=== PATIENT | female | born 1975 | race Caucasian/White ===

== ENCOUNTER 2024-07-17 22:30 | Emergency (ER) | payer OTHER, SELFPAY ==
[2024-07-17 22:32] VITALS: BP 154/94; PULSE 93; RESP 18; TEMP 36.8; O2SAT 100; BMI 29.9
--- NOTE | 2024-07-17 22:48 | XR_ITS ---
PROCEDURE INFORMATION: Exam: XR Right Shoulder Exam date and time: 07/17/2024 10:49 PM Age: 49 years old Clinical indication: Pain; Shoulder; Right; Additional info: Non traumatic right shoulder pain TECHNIQUE: Imaging protocol: Radiologic exam of the right shoulder. Views: 2 or more views. COMPARISON: No relevant prior studies available. FINDINGS: Bones/joints: Normal. Soft tissues: Normal. IMPRESSION: No acute findings.
--- NOTE | 2024-07-17 22:53 | HMH.EDGENADL ---
Discharge Plan Disposition Patient Disposition: Home, Self-Care Prescriptions Prescriptions: New cyclobenzaprine 5 mg tablet 5 mg PO TID PRN (Reason: muscle spasm) 5 Days Qty: 15 0RF Referrals Follow up/Referrals: Husam Amin DO [Staff Physician] - See instructions Activity Restrictions/Add. Instructions Additional Instructions/Restrictions: Please follow-up with your primary care provider. Please return to the emergency department if you develop any new or worsening symptoms or become concerned for your health. Clinical Impressions Clinical Impression: Pain in right shoulder Print Language Print Language: Swedish Discharge ED Provider: Eliezer oFy General Adult HPI <Komal Camara MD - Last Filed: 07/17/24 22:56> General Chief complaint: PAIN Stated complaint: Right shoulder pain Time Seen by Provider: 07/17/24 22:40 Mode of Arrival: Ambulatory Source of Information: Patient Limitations: No Limitations Description of Symptoms (Recalled from ER Triage Doc. by RN): pt reports right shoulder pain without known injury. pt reports pain is ongoing for a couple weeks and the pain becam worse in the last couple of days History of Present Illness HPI narrative: Patient is a 49-year-old female with a history of fibromyalgia who presents today with nontraumatic right shoulder pain. She denies any swelling any redness any neurovascular symptoms in the right upper extremity she states its only worse with movement. She denies any history of any blood clots any shortness of breath etc. Related Data Previous Rx's ?Medication ?Instructions ?Recorded cyclobenzaprine 5 mg tablet 5 mg PO TID PRN muscle spasm 5 07/17/24 days #15 tabs Allergies Allergy/AdvReac Type Severity Reaction Status Date / Time aspirin Allergy Unknown Verified 07/17/24 22:49 allergy reaction cephalexin [From Keflex] Allergy Unknown Verified 07/17/24 22:49 allergy reaction ciprofloxacin [From Cipro] Allergy Unknown Verified 07/17/24 22:49 allergy reaction morphine Allergy Unknown Verified 07/17/24 22:49 allergy reaction NSAIDS (Non-Steroidal Allergy Unknown Verified 07/17/24 22:49 Anti-Inflamma allergy reaction ondansetron [From Zofran] Allergy Unknown Verified 07/17/24 22:49 allergy reaction Sulfa (Sulfonamide AdvReac Unknown Verified 07/17/24 22:49 Antibiotics) allergy reaction PFSH <Komal Camara MD - Last Filed: 07/17/24 22:56> [facility] Disclaimer: The information contained in this section may have been updated after the patient was seen, as this information can be updated by other users. Social History (Updated 07/17/24 @ 22:56 by Komal Camara MD) Smoking Status: Never smoker alcohol intake: never current occupational status: other Travel in the last 8 weeks: None <Komal Camara MD - Last Filed: 07/17/24 22:56> ROS Obtained: Yes All systems reviewed & no additional complaints except as documented Physical Exam <Komal Camara MD - Last Filed: 07/17/24 22:56> General General appearance: alert and in no apparent distress Respiratory Respiratory exam: Present normal lung sounds bilaterally Cardiovascular Cardiovascular exam: Present regular rate and normal rhythm Extremities Exam Extremities exam: Present other (Right shoulder without any swelling within the joint itself there is tenderness in the anterior joint line normal range of motion with internal and external rotation flexion and extension neurovascular intact distally) Neurological Exam Neurological exam: Present alert and oriented X3 Medical Decision Making <Komal Camara MD - Last Filed: 07/17/24 22:56> Medical Records Screening: Per USPSTF and CDC recommendations, given the prevalence of disease in our region, it is our hospital?s policy to screen for HIV and viral Hepatitis for all patients aged 18 and over and those with ongoing risk factors. Domo Inquiry Pt receiving controlled substance: No Vital Signs: 07/17/24 22:32 Temperature 98.2 F Temperature Source Oral Pulse Rate [Right] 93 H Respiratory Rate 18 Blood Pressure [Right Arm] 154/94 H Blood Pressure Mean [Right Arm] 114 02 Sat by Pulse Oximetry 100 Orders (Tests/Meds): ED MEDICATIONS Discontinued Medications Generic Name Dose Route Start Last Admin Trade Name Freq PRN Reason Stop Dose Admin Acetaminophen 1,000 mg 07/18/24 00:10 07/18/24 00:18 Acetaminophen 500mg Tab PO 07/18/24 00:11 1,000 mg ONCE ONE Administration Cyclobenzaprine HCl 5 mg 07/17/24 22:48 07/17/24 23:06 Cyclobenzaprine 10mg Tablet PO 07/17/24 22:49 5 mg ONCE ONE Administration Ketorolac Tromethamine 30 mg 07/17/24 22:48 07/17/24 23:06 Ketorolac 30mg/Ml Vial IM 07/17/24 22:49 30 mg ONCE ONE Administration ORDERS Category Date Time Status Shoulder XR right miminum 2 views [XR shoulder RT min Exams 07/17/24 22:48 Completed 2V] Stat Medical Decision Narrative: 49-year-old with nontraumatic shoulder pain with very benign appearing exam. Exam is essentially normal from an objective standpoint. No evidence of infection, latency, swelling neurovascular abnormalities not consistent with an emergent medical condition such as a septic joint neurovascular emergency etc. Not consistent with a clot. Will get a x-ray to rule out any type of occult malignancy or fracture or degenerative changes. She has been given Toradol and Flexeril and will have her follow-up with her primary care doctor and also give her referral to orthopedic surgery if she is not improving within a few weeks. Care transition to Dr. Stacy Foy pending reassessment after medications and x-ray. <Eliezer Foy MD - Last Filed: 07/18/24 00:21> Vital Signs: 07/17/24 22:32 Temperature 98.2 F Temperature Source Oral Pulse Rate [Right] 93 H Respiratory Rate 18 Blood Pressure [Right Arm] 154/94 H Blood Pressure Mean [Right Arm] 114 02 Sat by Pulse Oximetry 100 Orders (Tests/Meds): ED MEDICATIONS Discontinued Medications Generic Name Dose Route Start Last Admin Trade Name Freq PRN Reason Stop Dose Admin Acetaminophen 1,000 mg 07/18/24 00:10 07/18/24 00:18 Acetaminophen 500mg Tab PO 07/18/24 00:11 1,000 mg ONCE ONE Administration Cyclobenzaprine HCl 5 mg 07/17/24 22:48 07/17/24 23:06 Cyclobenzaprine 10mg Tablet PO 07/17/24 22:49 5 mg ONCE ONE Administration Ketorolac Tromethamine 30 mg 07/17/24 22:48 07/17/24 23:06 Ketorolac 30mg/Ml Vial IM 07/17/24 22:49 30 mg ONCE ONE Administration ORDERS Category Date Time Status Shoulder XR right miminum 2 views [XR shoulder RT min Exams 07/17/24 22:48 Completed 2V] Stat Medical Decision Narrative: 49-year-old with nontraumatic shoulder pain with very benign appearing exam. Exam is essentially normal from an objective standpoint. No evidence of infection, latency, swelling neurovascular abnormalities not consistent with an emergent medical condition such as a septic joint neurovascular emergency etc. Not consistent with a clot. Will get a x-ray to rule out any type of occult malignancy or fracture or degenerative changes. She has been given Toradol and Flexeril and will have her follow-up with her primary care doctor and also give her referral to orthopedic surgery if she is not improving within a few weeks. Care transition to Dr. Stacy Foy pending reassessment after medications and x-ray. Law DUNN: I assumed care of the patient at the time of handoff from the prior provider. On reassessment patient kiah hemodynamically stable. Patient was given additional dose of Tylenol for pain. Radiograph showed no acute bony injury. Encouraged follow-up with our Ortho Dr. Amin for further assessment. Critical Care <Komal Camara MD - Last Filed: 07/17/24 22:56> Critical Care Time Critical Care Time: No
[2024-07-17] MEDS: CYCLOBENZAPRINE 10MG TABLET 5 MG PO (23:06)
[2024-07-17] MEDS: KETOROLAC 30MG/ML VIAL 30 MG IM (23:06)
[2024-07-18] MEDS: ACETAMINOPHEN 500MG TAB 1000 MG PO (00:18)
[2024-07-18 00:29] VITALS: BP 154/94; PULSE 93; RESP 18; TEMP 36.8; O2SAT 100
== END 2024-07-18 00:31 | disposition home or self-care (01) ==
PROVIDERS: Emergency Provider Emergency Medicine
DX: M25.511 Pain in right shoulder (principal)
CPT/HCPCS: 73030; 96372; 99283; J1885

== ENCOUNTER 2024-09-17 17:33 | Inpatient (IN) | payer OTHER, SELFPAY ==
--- NOTE | 2024-09-17 18:14 | HMH.EDGENADL ---
Discharge Plan Disposition Patient Disposition: Admitted Condition: Fair Clinical Impressions Clinical Impression: Acute kidney injury (nontraumatic) Urinary tract infection Qualifiers: Urinary tract infection type: site unspecified Hematuria presence: with hematuria Qualified Code(s): N39.0 - Urinary tract infection, site not specified Discharge ED Provider: Derrick Oneil General Adult HPI <LASHONDA Lynch - Last Filed: 09/17/24 21:05> General Chief complaint: Nausea/Vomiting/Diarrhea Stated complaint: fever,body aches Time Seen by Provider: 09/17/24 17:46 History of Present Illness HPI narrative: Patient presents for evaluation of nausea vomiting diarrhea and abdominal pain. Patient gives a history of 4 days of nausea vomiting diarrhea and abdominal pain. She is try to go to work on Sunday but has been unable to make it to the day due to her illness. She was so weak today she nearly passed out but did not and her was present and confirms this. She reports that she is having brown loose stool and has been intolerant of all oral intake. 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 She currently denies chest pain shortness of breath hemoptysis hematochezia melena hematemesis hematuria dysuria or vaginal discharge. Related Data Previous Rx's ?Medication ?Instructions ?Recorded cyclobenzaprine 5 mg tablet 5 mg PO TID PRN muscle spasm 5 07/17/24 days #15 tabs cyclobenzaprine 5 mg tablet 5 mg PO TID PRN muscle spasm #30 07/18/24 tabs Allergies Allergy/AdvReac Type Severity Reaction Status Date / Time aspirin Allergy Unknown Verified 07/24/24 13:29 allergy reaction cephalexin (From Keflex) Allergy Unknown Verified 07/24/24 13:29 allergy reaction ciprofloxacin (From Cipro) Allergy Unknown Verified 07/24/24 13:29 allergy reaction morphine Allergy Unknown Verified 07/24/24 13:29 allergy reaction NSAIDS (Non-Steroidal Allergy Unknown Verified 07/24/24 13:29 Anti-Inflamma allergy reaction ondansetron (From Zofran) Allergy Unknown Verified 07/24/24 13:29 allergy reaction Sulfa (Sulfonamide AdvReac Unknown Verified 07/24/24 13:29 Antibiotics) allergy reaction PFSH <LASHONDA Lynch - Last Filed: 09/17/24 21:05> [facility] [place] Disclaimer: The information contained in this section may have been updated after the patient was seen, as this information can be updated by other users. Social History Smoking Status: Never smoker alcohol intake: never current occupational status: other Travel in the last 8 weeks: None Have you lived/traveled outside [place] in past 30 days?: No Contact w/someone who lives/traveled outside US past 30 days?: No Exposure to someone with infectious disease in past 14 days?: No Do you have a fever (greater than 100.4 F or 38 C)?: Yes Have you tested positive for COVID-19: No Exposed to someone with COVID-19 in past 14 days?: No Do you have a sore throat?: No Do you have a cough?: No Do you have any weakness?: Yes Do you have any diarrhea?: No Are you experiencing any unusual bleeding?: No Do you have any muscle aches/pain?: Yes Do you have any abdominal pain?: No Are you experiencing loss of taste or smell?: No <LASHONDA Lynch - Last Filed: 09/17/24 21:05> ROS Obtained: Yes Systems reviewed as appropriate & no additional complaints except as documented Physical Exam <LASHONDA Lynch - Last Filed: 09/17/24 21:05> General General appearance: alert and in no apparent distress Respiratory Respiratory exam: Present normal lung sounds bilaterally Cardiovascular Cardiovascular exam: Present tachycardia Neurological Exam Neurological exam: Present alert and oriented X3 Medical Decision Making <LASHONDA Lynch - Last Filed: 09/17/24 21:05> Medical Records Medical records reviewed: Yes I reviewed the patient's medical records. Screening: Per USPSTF and CDC recommendations, given the prevalence of disease in our region, it is our hospital?s policy to screen for HIV and viral Hepatitis for all patients aged 18 and over and those with ongoing risk factors. Domo Inquiry Pt receiving controlled substance: No Vital Signs: 09/17/24 18:19 09/17/24 18:41 09/17/24 21:20 Temperature 98.8 F 97.6 F Temperature Source Oral Oral Pulse Rate 45 L 86 Pulse Rate [Right Brachial] 115 H Respiratory Rate 16 18 Blood Pressure 104/56 L 96/74 L Blood Pressure [Right Arm] 114/67 Blood Pressure Mean [Right Arm] 82 Blood Pressure Source Automatic Cuff Blood Pressure Source [Right Arm] Automatic Cuff Blood Pressure Position Supine Blood Pressure Position [Right Arm] Sitting 02 Sat by Pulse Oximetry 100 93 L Oxygen Delivery Method Room Air Room Air Lab Data Lab results reviewed: Yes I reviewed the patient's lab results. Lab Results 09/17/24 17:35: WBC 7.8, RBC 4.03 L, Hgb 13.0, Hct 37.5, MCV 93.1, MCH 32.3 H, MCHC 34.7, RDW 14.7, Plt Count 171, MPV 9.8, Neut % (Auto) 84.4 H, Lymph % (Auto) 5.7 L, Martin % (Auto) 8.0, Eos % (Auto) 0.0 L, Baso % (Auto) 0.8, Neut # (Auto) 6.6, Lymph # (Auto) 0.5 L, Martin # (Auto) 0.6, Eos # (Auto) 0.0, Baso # (Auto) 6.0 H 09/17/24 18:21: SARS-CoV-2 (PCR) Not detected, Influenza A Untype (PCR) Not detected, Influenza Type B (PCR) Not detected 09/17/24 18:35: Sodium 127 L, Potassium 3.7, Chloride 94 L, Carbon Dioxide 23, Anion Gap 13.7, BUN 37 H, Creatinine 1.80 H, Estimated Creat Clear 46, Estimated GFR 30 L, Est GFR ( Amer) 36 L, Glucose 135 H, Lactate 1.6, Calcium 8.1 L, Phosphorus 3.3, Magnesium 2.2, Total Bilirubin 0.6, AST 55 H, ALT 62, Alkaline Phosphatase 170 H, Total Protein 6.8, Albumin 3.4 L, Globulin 3.4 H, Albumin/Globulin Ratio 1.0 L, Lipase 37, Serum HCG, Qual Negative 09/17/24 18:42: VBG pH 7.39, VBG pCO2 35.5, VBG pO2 29.3, VBG HCO3 21.2 L, VBG Total CO2 22.2 L, VBG O2 Saturation 58.9, VBG Base Excess -3.8 L, VBG Lactic Acid 2.6 H 09/17/24 20:00: Urine Color Yellow, Urine Appearance Clear, Urine pH 6.0, Ur Specific [place] 1.015, Urine Protein 2+ A, Urine Glucose (UA) Negative, Urine Ketones Negative, Urine Blood Trace-i, Urine Nitrate Positive A, Urine Bilirubin Negative, Urine Urobilinogen 0.2, Ur Leukocyte Esterase 2+ A, Urine RBC 5-10, Urine WBC Tntc, Ur Squamous Epith Cells 50-100, Urine Bacteria 4+ 09/17/24 17:35 09/17/24 18:35 Orders (Tests/Meds): ED MEDICATIONS Generic Name Dose Route Start Last Admin Trade Name Freq PRN Reason Stop Dose Admin Sodium Chloride 10 ml 09/17/24 19:53 09/17/24 19:53 Sodium Chloride 0.9% 10ml Syr (Rad Only) IV 10/17/24 19:52 10 ml NEEDED PRN Administration Maintain IV Site Discontinued Medications Generic Name Dose Route Start Last Admin Trade Name Freq PRN Reason Stop Dose Admin Acetaminophen 1,000 mg 09/17/24 18:20 09/17/24 18:50 Acetaminophen 1,000mg/100ml Vial IV 09/17/24 18:21 1,000 mg ONCE ONE Administration Hydromorphone HCl 0.5 mg 09/17/24 20:44 09/17/24 21:07 Hydromorphone 2mg/Ml Syringe IV 09/17/24 20:45 0.5 mg ONCE ONE Administration Lactated Ringer's 1,000 mls @ 999 mls/hr 09/17/24 18:20 09/17/24 18:53 Lactated Ringer's 1000 Ml Bag IV 09/17/24 19:20 Not Given .Q1H1M ONE Lactated Ringer's 1,710 mls @ 855 mls/hr 09/17/24 18:23 09/17/24 18:49 Lactated Ringer's 1000 Ml Bag 30 ml/kg infuse over 2 hr (1710 ml) 09/17/24 20:22 855 mls/hr IV Administration .Q2H ONE Iopamidol 75 ml 09/17/24 19:53 09/17/24 19:54 Iopamidol-370 (76%);100ml Bottle IV 09/17/24 19:54 75 ml ONCE ONE Administration Promethazine HCl 12.5 mg 09/17/24 18:20 09/17/24 18:46 Promethazine Hcl 25mg/Ml 1ml Vial IV 09/17/24 18:21 12.5 mg ONCE ONE Administration Sodium Chloride 25 ml 09/17/24 18:20 09/17/24 18:46 Sodium Chloride 0.9% 25ml Bag IV 09/17/24 18:21 25 ml ONCE ONE Administration ORDERS Category Date Time Status CT abdomen pelvis w con Stat Cat Scan 09/17/24 18:20 Completed CBC w/Auto Diff [Complete Blood Count Auto Diff] Stat Lab 09/17/24 17:35 Completed CMP [Comprehensive Metabolic Panel] Stat Lab 09/17/24 18:35 Completed HCG Qualitative, Serum Stat Lab 09/17/24 18:35 Completed HIV Combo Stat Lab 09/17/24 18:35 Received Hep C Ab with Reflex to RNA Stat Lab 09/17/24 18:35 Received Lactic Acid Stat Lab 09/17/24 18:35 Completed Lipase Stat Lab 09/17/24 18:35 Completed Magnesium Stat Lab 09/17/24 18:35 Completed Phosphorous Stat Lab 09/17/24 18:35 Completed Rapid PCR Covid and Flu A/B Stat Lab 09/17/24 18:21 Completed UA [Urinalysis and Microscopic] Stat Lab 09/17/24 20:00 Completed Blood Culture Stat Micro 09/17/24 19:20 Received Urine Culture Stat Micro 09/17/24 20:00 Received VBG [Venous Blood Gas] Stat RT 09/17/24 18:42 Completed Medical Decision Narrative: In summary patient is a 49-year-old female who presents to the emergency department for evaluation of nausea vomiting diarrhea and abdominal pain. Patient is hemodynamically stable tachycardic at 115 upon arrival, with a temperature of 98.8. Physical exam is remarkable for an unwell appearing but well-nourished well-developed 49-year-old female who does not appear to be in otherwise acute distress. Patient's breath sounds clear and equal bilaterally to the bases, patient has diffuse abdominal tenderness to palpation without rebound or guarding or rigidity. Bowel sounds normal active. Patient is sinus tachycardia on the bedside monitor. Differential diagnosis includes gastroenteritis versus bowel obstruction versus urinary tract infection versus kidney stone etc. Initial workup will be conducted with hematologic labs CT scan abdomen pelvis with contrast urinalysis. Initial interventions include crystalloid bolus with sepsis protocol Tylenol and Phenergan as patient has an allergy to Zofran. Initial workup reviewed by me and. Her white count is 7.8 absolute neutrophil count 6.6 VBG shows a preserved pH with a lactic acid of 2.6 chemistry shows a sodium of 127 chloride of 94 gap of 13.7 with a BUN of 37 creatinine 1.8 a GFR of 30 mag and Phos are within normal limits. Urinalysis shows 2+ protein negative ketones trace blood positive nitrites positive leukocyte Estrace and microscopic exam shows 5-10 red blood cells too numerous to count white cells with 50-100 squamous epithelial cells suggesting contamination and 4+ bacteria and my informal interpretation of CT scan abdomen pelvis shows stranding around the left renal pelvis suggestive of pyelonephritis. Given this I had interact discussion with the hospitalist about patient management and she will be admitted for further evaluation and care. <Derrick Oneil MD - Last Filed: 09/17/24 21:25> Vital Signs: 09/17/24 18:19 09/17/24 18:41 09/17/24 21:20 Temperature 98.8 F 97.6 F Temperature Source Oral Oral Pulse Rate 45 L 86 Pulse Rate [Right Brachial] 115 H Respiratory Rate 16 18 Blood Pressure 104/56 L 96/74 L Blood Pressure [Right Arm] 114/67 Blood Pressure Mean [Right Arm] 82 Blood Pressure Source Automatic Cuff Blood Pressure Source [Right Arm] Automatic Cuff Blood Pressure Position Supine Blood Pressure Position [Right Arm] Sitting 02 Sat by Pulse Oximetry 100 93 L Oxygen Delivery Method Room Air Room Air Lab Data Lab Results 09/17/24 17:35: WBC 7.8, RBC 4.03 L, Hgb 13.0, Hct 37.5, MCV 93.1, MCH 32.3 H, MCHC 34.7, RDW 14.7, Plt Count 171, MPV 9.8, Neut % (Auto) 84.4 H, Lymph % (Auto) 5.7 L, Martin % (Auto) 8.0, Eos % (Auto) 0.0 L, Baso % (Auto) 0.8, Neut # (Auto) 6.6, Lymph # (Auto) 0.5 L, Martin # (Auto) 0.6, Eos # (Auto) 0.0, Baso # (Auto) 6.0 H 09/17/24 18:21: SARS-CoV-2 (PCR) Not detected, Influenza A Untype (PCR) Not detected, Influenza Type B (PCR) Not detected 09/17/24 18:35: Sodium 127 L, Potassium 3.7, Chloride 94 L, Carbon Dioxide 23, Anion Gap 13.7, BUN 37 H, Creatinine 1.80 H, Estimated Creat Clear 46, Estimated GFR 30 L, Est GFR ( Amer) 36 L, Glucose 135 H, Lactate 1.6, Calcium 8.1 L, Phosphorus 3.3, Magnesium 2.2, Total Bilirubin 0.6, AST 55 H, ALT 62, Alkaline Phosphatase 170 H, Total Protein 6.8, Albumin 3.4 L, Globulin 3.4 H, Albumin/Globulin Ratio 1.0 L, Lipase 37, Serum HCG, Qual Negative 09/17/24 18:42: VBG pH 7.39, VBG pCO2 35.5, VBG pO2 29.3, VBG HCO3 21.2 L, VBG Total CO2 22.2 L, VBG O2 Saturation 58.9, VBG Base Excess -3.8 L, VBG Lactic Acid 2.6 H 09/17/24 20:00: Urine Color Yellow, Urine Appearance Clear, Urine pH 6.0, Ur Specific [place] 1.015, Urine Protein 2+ A, Urine Glucose (UA) Negative, Urine Ketones Negative, Urine Blood Trace-i, Urine Nitrate Positive A, Urine Bilirubin Negative, Urine Urobilinogen 0.2, Ur Leukocyte Esterase 2+ A, Urine RBC 5-10, Urine WBC Tntc, Ur Squamous Epith Cells 50-100, Urine Bacteria 4+ Orders (Tests/Meds): ED MEDICATIONS Generic Name Dose Route Start Last Admin Trade Name Freq PRN Reason Stop Dose Admin Sodium Chloride 10 ml 09/17/24 19:53 09/17/24 19:53 Sodium Chloride 0.9% 10ml Syr (Rad Only) IV 10/17/24 19:52 10 ml NEEDED PRN Administration Maintain IV Site Discontinued Medications Generic Name Dose Route Start Last Admin Trade Name Freq PRN Reason Stop Dose Admin Acetaminophen 1,000 mg 09/17/24 18:20 09/17/24 18:50 Acetaminophen 1,000mg/100ml Vial IV 09/17/24 18:21 1,000 mg ONCE ONE Administration Hydromorphone HCl 0.5 mg 09/17/24 20:44 09/17/24 21:07 Hydromorphone 2mg/Ml Syringe IV 09/17/24 20:45 0.5 mg ONCE ONE Administration Lactated Ringer's 1,000 mls @ 999 mls/hr 09/17/24 18:20 09/17/24 18:53 Lactated Ringer's 1000 Ml Bag IV 09/17/24 19:20 Not Given .Q1H1M ONE Lactated Ringer's 1,710 mls @ 855 mls/hr 09/17/24 18:23 09/17/24 18:49 Lactated Ringer's 1000 Ml Bag 30 ml/kg infuse over 2 hr (1710 ml) 09/17/24 20:22 855 mls/hr IV Administration .Q2H ONE Iopamidol 75 ml 09/17/24 19:53 09/17/24 19:54 Iopamidol-370 (76%);100ml Bottle IV 09/17/24 19:54 75 ml ONCE ONE Administration Promethazine HCl 12.5 mg 09/17/24 18:20 09/17/24 18:46 Promethazine Hcl 25mg/Ml 1ml Vial IV 09/17/24 18:21 12.5 mg ONCE ONE Administration Sodium Chloride 25 ml 09/17/24 18:20 09/17/24 18:46 Sodium Chloride 0.9% 25ml Bag IV 09/17/24 18:21 25 ml ONCE ONE Administration ORDERS Category Date Time Status CT abdomen pelvis w con Stat Cat Scan 09/17/24 18:20 Completed CBC w/Auto Diff [Complete Blood Count Auto Diff] Stat Lab 09/17/24 17:35 Completed CMP [Comprehensive Metabolic Panel] Stat Lab 09/17/24 18:35 Completed HCG Qualitative, Serum Stat Lab 09/17/24 18:35 Completed HIV Combo Stat Lab 09/17/24 18:35 Received Hep C Ab with Reflex to RNA Stat Lab 09/17/24 18:35 Received Lactic Acid Stat Lab 09/17/24 18:35 Completed Lipase Stat Lab 09/17/24 18:35 Completed Magnesium Stat Lab 09/17/24 18:35 Completed Phosphorous Stat Lab 09/17/24 18:35 Completed Rapid PCR Covid and Flu A/B Stat Lab 09/17/24 18:21 Completed UA [Urinalysis and Microscopic] Stat Lab 09/17/24 20:00 Completed Blood Culture Stat Micro 09/17/24 19:20 Received Urine Culture Stat Micro 09/17/24 20:00 Received VBG [Venous Blood Gas] Stat RT 09/17/24 18:42 Completed Medical Decision Narrative: In summary patient is a 49-year-old female who presents to the emergency department for evaluation of nausea vomiting diarrhea and abdominal pain. Patient is hemodynamically stable tachycardic at 115 upon arrival, with a temperature of 98.8. Physical exam is remarkable for an unwell appearing but well-nourished well-developed 49-year-old female who does not appear to be in otherwise acute distress. Patient's breath sounds clear and equal bilaterally to the bases, patient has diffuse abdominal tenderness to palpation without rebound or guarding or rigidity. Bowel sounds normal active. Patient is sinus tachycardia on the bedside monitor. Differential diagnosis includes gastroenteritis versus bowel obstruction versus urinary tract infection versus kidney stone etc. Initial workup will be conducted with hematologic labs CT scan abdomen pelvis with contrast urinalysis. Initial interventions include crystalloid bolus with sepsis protocol Tylenol and Phenergan as patient has an allergy to Zofran. Initial workup reviewed by me and. Her white count is 7.8 absolute neutrophil count 6.6 VBG shows a preserved pH with a lactic acid of 2.6 chemistry shows a sodium of 127 chloride of 94 gap of 13.7 with a BUN of 37 creatinine 1.8 a GFR of 30 mag and Phos are within normal limits. Urinalysis shows 2+ protein negative ketones trace blood positive nitrites positive leukocyte Estrace and microscopic exam shows 5-10 red blood cells too numerous to count white cells with 50-100 squamous epithelial cells suggesting contamination and 4+ bacteria and my informal interpretation of CT scan abdomen pelvis shows stranding around the left renal pelvis suggestive of pyelonephritis. Given this I had interact discussion with the hospitalist about patient management and she will be admitted for further evaluation and care. ORIN attestation I was consulted by the ORIN, and we discussed the complexity of problems being addressed. I approved the treatment and management plan for this patient's care in the emergency department, thus performing a substantial portion of the medical decision making. Derrick Oneil MD Critical Care <LASHONDA Lynch - Last Filed: 09/17/24 21:05> Critical Care Time Critical Care Time: Yes Attestation: On 09/17/24, the high probability of a clinically significant, sudden or life threatening deterioration of the following system(renal) required my full and direct attention, intervention and personal management. The time I documented below is in addition to time spent performing reported procedures but includes the following listed in this critical care notation. Total Time Total Critical Care Time: 30
[2024-09-17 18:19] VITALS: BP 114/67; PULSE 115; RESP 16; TEMP 37.1; O2SAT 100; BMI 27.4
--- NOTE | 2024-09-17 18:20 | CT_ITS ---
PROCEDURE INFORMATION: Exam: CT Abdomen And Pelvis With Contrast Exam date and time: 09/17/2024 7:50 PM Age: 49 years old Clinical indication: Nausea and vomiting; Additional info: Abdominal pain nausea vomiting diarrhea TECHNIQUE: Imaging protocol: Computed tomography of the abdomen and pelvis with contrast. Radiation optimization: All CT scans at this facility use at least one of these dose optimization techniques: automated exposure control; mA and/or kV adjustment per patient size (includes targeted exams where dose is matched to clinical indication); or iterative reconstruction. Contrast material: ISOVUE; Contrast volume: 75 ml; Contrast route: IV; COMPARISON: No relevant prior studies available. FINDINGS: Diaphragm: Small hiatal hernia. Liver: Normal. No mass. Gallbladder and biliary ducts: Status post cholecystectomy. No significant biliary ductal dilitation. Pancreas: Normal. No ductal dilation. Spleen: Normal. No splenomegaly. Adrenal glands: Normal. No mass. Kidneys and ureters: Mild urothelial thickening at the left renal pelvis. No renal lesions or hydronephrosis. Stomach and bowel: Status post gastric bypass. No dilated or thickened bowel loops. Appendix: Status post appendectomy. Intraperitoneal space: Unremarkable. No free air. No significant fluid collection. Vasculature: Unremarkable. No abdominal aortic aneurysm. Lymph nodes: Unremarkable. No enlarged lymph nodes. Urinary bladder: Decompressed bladder. Reproductive: Unremarkable as visualized. Bones/joints: Chronic mild wedge deformities of T12 and L1. Mild lumbar spine degenerative change. Soft tissues: Unremarkable. IMPRESSION: 1. Mild urothelial thickening at the left renal pelvis. Correlate for urinary tract infection. 2. Status post gastric bypass surgery. No evidence of bowel obstruction. 3. Status post cholecystectomy. 4. Status post appendectomy.
[2024-09-17 18:41] VITALS: BP 104/56; PULSE 45; O2SAT 93
[2024-09-17 18:42] LABS: Coronavirus 19, PCR Not Detected (NotDetected); Influenza A, PCR Not Detected (NotDetected); Influenza B, PCR Not Detected (NotDetected)
[2024-09-17] MEDS: SODIUM CHLORIDE 0.9% 25ML BAG 25 ML IV (18:46)
[2024-09-17] MEDS: PROMETHAZINE HCL 25MG/ML 1ML VIAL 12.5 MG IV (18:46)
[2024-09-17 18:47] LABS: Lactate Venous 2.6 mmol/L (0.4-2.0); VBG Base Excess -3.8 mmol/L (-2.4-2.3); VBG HCO3 21.2 mmol/L (23-30); VBG Oxygen Saturation 58.9 % (50-70); VBG PCO2 35.5 mmol/L (35-51); VBG PH 7.39 mmol/L (7.31-7.41); VBG PO2 29.3 mmol/L (28-40); VBG Total CO2 22.2 mmol/L (23-27)
[2024-09-17] MEDS: LACTATED RINGERS 1000ML 1,710 ML 855 ML IV (18:49)
[2024-09-17] MEDS: ACETAMINOPHEN 1,000MG/100ML VIAL 1000 MG IV (18:50)
[2024-09-17 19:04] LABS: Red Blood Count 4.03 M/mm3 (4.20-5.40); White Blood Count 7.8 K/mm3 (4.8-10.8)
[2024-09-17 19:05] LABS: Alanine Aminotransferase 62 U/L (12-78); Albumin Level 3.4 g/dl (3.5-5.0); Alkaline Phosphatase 170 U/L (38-126); Aspartate Amino Transferase 55 U/L (14-36); Bilirubin,Total 0.6 mg/dl (0.2-1.3); Blood Urea Nitrogen 37 mg/dl (7-17); Calcium 8.1 mg/dl (8.4-10.2); Carbon Dioxide 23 mmol/L (22.0-30.0); Creatinine Clearance Estimated 46 mL/min (50-200); Estimated Glomerular Filt Rate 30 ml/min (>60); GFR (African American) 36 ML/MIN (>60); Globulin 3.4 g/dL (1.3-3.2); Glucose 135 mg/dl (74-100); Lactic Acid 1.6 mmol/L (0.7-2.1); Lipase 37 U/L (23-300); Potassium 3.7 mmoL/L (3.5-5.1); Sodium 127 mmol/L (136-145); Total Protein,Serum 6.8 g/dl (6.3-8.2)
[2024-09-17 19:05] LABS: Basophils % 0.8 % (0.1-2.0); Hematocrit 37.5 % (37.0-47.0); Lymphocytes # 0.5 K/mm3 (0.7-4.5); Lymphocytes % 5.7 % (10-50); Mean Corpuscular HGB Conc 34.7 g/dL (31.8-35.4); Mean Corpuscular Hemoglobin 32.3 pg (27.0-31.2); Mean Corpuscular Volume 93.1 fl (81-99); Mean Platelet Volume 9.8 fl (7.4-10.4); Monocytes # 0.6 K/mm3 (0.1-1.0); Neutrophils # 6.6 K/mm3 (1.8-7.8); Neutrophils % 84.4 % (37.0-80.0); Platelet Count 171 K/mm3 (142-424); Red Cell Distribution Width 14.7 % (11.5-17.5)
[2024-09-17 19:20] LABS: Anion Gap 13.7 mEq/L (5-15); Chloride 94 mmol/L (98-107)
[2024-09-17 19:24] LABS: HCG Qualitative, Serum Negative (Negative)
[2024-09-17 19:27] LABS: Magnesium 2.2 mg/dl (1.6-2.3); Phosphorous 3.3 mg/dl (2.5-4.5)
[2024-09-17] MEDS: SODIUM CHLORIDE 0.9% 10ML SYR (RAD ONLY) 10 ML IV (19:53)
[2024-09-17] MEDS: IOPAMIDOL-370 (76%);100ML BOTTLE 75 ML IV (19:54)
[2024-09-17 20:10] LABS: Microscopic, Urine URINE MICROSCOPIC (MICROSCOPIC)
[2024-09-17 20:12] LABS: Appearance,Urine CLEAR (Clear); Blood, Urine TRACE-I (Negative); Color,Urine YELLOW (Yellow); Glucose,Urine (UA) Negative (Negative); Ketones,Urine Negative (Negative); Leukocyte Esterase,Urine 2+ (Negative); Nitrate,Urine POSITIVE (Negative); Protein,Urine 2+ (Negative); Specific Gravity, Urine 1.015 (1.005-1.030); Urobilinogen,Urine 0.2 EU/dl (0.2)
[2024-09-17 20:20] LABS: Bilirubin,Urine Negative (Negative)
[2024-09-17 20:54] LABS: Squamous Epithelial Cell,Urine 50-100 #/hpf (0-5); WBC,Urine TNTC #/hpf (0-3)
[2024-09-17 20:55] LABS: Bacteria,Urine 4+ /lpf
[2024-09-17] MEDS: HYDROMORPHONE 2MG/ML SYRINGE 0.5 MG IV (21:07)
--- NOTE | 2024-09-17 21:17 | PC.NURSE ---
Report given to JOSE Guo at this time.
[2024-09-17 21:20] VITALS: BP 96/74; PULSE 86; RESP 18; TEMP 36.4; O2SAT 97
[2024-09-17 21:28] VITALS: BP 115/94; PULSE 92; RESP 16; TEMP 36.8; O2SAT 99
[2024-09-17 21:37] VITALS: BMI 27.4
[2024-09-17] MEDS: 0.9% NaCl w/40mEq KCL 1,000 ML 150 ML IV (21:48)
--- NOTE | 2024-09-17 22:07 | P.HP_ITS ---
History of Present Illness *Admission Date: 09/17/24 *Reason for visit:: Suprapubic/left flank pain, fevers, chills, nausea, vo miting, malaise *History of present illness: 49-year-old with past medical history of remote Lala-en-Y, fibromyalgia, GERD, anxiety. Patient presents complaining of 5 days left-sided/suprapubic discomfort, nausea, fevers, chills, diaphoresis, urinary hesitancy, and malaise. Admits to some vomiting starting today. Also admits to greenish cough also starting today. States she suffered from diarrhea since Sunday. Describes abdominal discomfort as suprapubic, left flank at baseline, 04/09, tight, lasting 20 to 30 minutes, better when patient falls asleep. Admits to 5 days of urinary hesitancy but denies dysuria or urinary frequency. Denies chest pain, shortness of breath, known sick contacts, recent travel. Patient had a Lala-en-Y gastric bypass approximately 20 years ago. Takes B12/folate supplementation at baseline. UA positive nitrates/leuk esterase, urinary WBC TNTC, +4 bacteria diagnosed with left pyelonephritis. [facility] Disclaimer: The information contained in this section may have been updated after the patient was seen, as this information can be updated by other users. Surgical History (Updated 09/17/24 @ 21:46 by Jumana Dia RN) History of tonsillectomy History of appendectomy History of cholecystectomy History of Lala-en-Y gastric bypass Family History (Updated 09/17/24 @ 21:46 by Jumana Dia RN) Other Family history of cancer Family history of diabetes mellitus (DM) Family history of hypertension Social History (Updated 09/17/24 @ 21:46 by Jumana Dia RN) Smoking Status: Never smoker alcohol intake: never current occupational status: employed Travel in the last 8 weeks: None Have you lived/traveled outside [place] in past 30 days?: No Contact w/someone who lives/traveled outside US past 30 days?: No Exposure to someone with infectious disease in past 14 days?: No Do you have a fever (greater than 100.4 F or 38 C)?: Yes Have you tested positive for COVID-19: No Exposed to someone with COVID-19 in past 14 days?: No Do you have a sore throat?: No Do you have a cough?: No Do you have any weakness?: Yes Are you experiencing any nausea/vomitting?: No Do you have any diarrhea?: No Are you experiencing any unusual bleeding?: No Do you have any muscle aches/pain?: Yes Do you have any abdominal pain?: No Are you experiencing loss of taste or smell?: No Other Medical History Have you received the Flu Vaccine for this season: Yes Have you received the Pneumonia Vaccine: No Review of Systems Review of Systems Review of systems:: pertinent systems reviewed and negative unless documented below Constitutional Constitutional: Reports system reviewed and no additional complaints, except as documented Meds Home Medications and Allergies Home Medications ?Medication ?Instructions ?Recorded ?Confirmed ?Type baclofen 10 mg tablet 10 mg PO TID 09/17/24 09/17/24 History buspirone 15 mg tablet 15 mg PO TID 09/17/24 09/17/24 History cyanocobalamin (vitamin B-12) 1,000 mcg IM MONTHLY 09/17/24 09/17/24 History 1,000 mcg/mL injection solution dicyclomine 20 mg tablet 20 mg PO QID 09/17/24 09/17/24 History pantoprazole 40 mg tablet,delayed 40 mg PO BID 09/17/24 09/17/24 History release quetiapine 25 mg tablet 25 mg PO HS 09/17/24 09/17/24 History tizanidine 4 mg capsule 4 mg PO HS 09/17/24 09/17/24 History trazodone 150 mg tablet 150 mg PO HS 09/17/24 09/17/24 History New Prescriptions to Start Prescriptions: Allergies Allergy/AdvReac Type Severity Reaction Status Date / Time aspirin Allergy Unknown Verified 07/24/24 13:29 allergy reaction cephalexin (From Keflex) Allergy Unknown Verified 07/24/24 13:29 allergy reaction ciprofloxacin (From Cipro) Allergy Unknown Verified 07/24/24 13:29 allergy reaction morphine Allergy Unknown Verified 07/24/24 13:29 allergy reaction NSAIDS (Non-Steroidal Allergy Unknown Verified 07/24/24 13:29 Anti-Inflamma allergy reaction ondansetron (From Zofran) Allergy Unknown Verified 07/24/24 13:29 allergy reaction Sulfa (Sulfonamide AdvReac Unknown Verified 07/24/24 13:29 Antibiotics) allergy reaction Exam Data for Last 24 hours Vital signs and Labs for Last 24 Hours: Temp Pulse Resp BP Pulse Ox O2 Del Method 98.2 F 92 H 16 115/94 H 99 Room Air 09/17/24 21:28 09/17/24 21:28 09/17/24 21:28 09/17/24 21:28 09/17/24 21:28 09/17/24 21:28 Laboratory Results - last 24 hr 09/17/24 17:35: WBC 7.8, RBC 4.03 L, Hgb 13.0, Hct 37.5, MCV 93.1, MCH 32.3 H, MCHC 34.7, RDW 14.7, Plt Count 171, MPV 9.8, Neut % (Auto) 84.4 H, Lymph % (Auto) 5.7 L, [place] % (Auto) 8.0, Eos % (Auto) 0.0 L, Baso % (Auto) 0.8, Neut # (Auto) 6.6, Lymph # (Auto) 0.5 L, [place] # (Auto) 0.6, Eos # (Auto) 0.0, Baso # (Auto) 6.0 H 09/17/24 18:21: SARS-CoV-2 (PCR) Not detected, Influenza A Untype (PCR) Not detected, Influenza Type B (PCR) Not detected 09/17/24 18:35: Sodium 127 L, Potassium 3.7, Chloride 94 L, Carbon Dioxide 23, Anion Gap 13.7, BUN 37 H, Creatinine 1.80 H, Estimated Creat Clear 46, Estimated GFR 30 L, Est GFR ( Amer) 36 L, Glucose 135 H, Lactate 1.6, Calcium 8.1 L , Phosphorus 3.3, Magnesium 2.2, Total Bilirubin 0.6, AST 55 H, ALT 62, Alkaline Phosphatase 170 H, Total Protein 6.8, Albumin 3.4 L, Globulin 3.4 H, Albumin/Globulin Ratio 1.0 L, Lipase 37, Serum HCG, Qual Negative 09/17/24 18:42: VBG pH 7.39, VBG pCO2 35.5, VBG pO2 29.3, VBG HCO3 21.2 L, VBG Total CO2 22.2 L, VBG O2 Saturation 58.9, VBG Base Excess -3.8 L, VBG Lactic Acid 2.6 H 09/17/24 20:00: Urine Color Yellow, Urine Appearance Clear, Urine pH 6.0, Ur Specific [place] 1.015, Urine Protein 2+ A, Urine Glucose (UA) Negative, Urine Ketones Negative, Urine Blood Trace-i, Urine Nitrate Positive A, Urine Bilirubin Negative, Urine Urobilinogen 0.2, Ur Leukocyte Esterase 2+ A, Urine RBC 5-10, Urine WBC Tntc, Ur Squamous Epith Cells 50-100, Urine Bacteria 4+ I & O for Last 24 hours: Intake & Output 09/14/24 09/15/24 09/16/24 09/17/24 23:59 23:59 23:59 23:59 Weight 74.871 kg Constitutional Constitutional: mild distress and cooperative *Routine HEENT Exam Head: Present normocephalic Eye: Present EOMI ENT: Present mucous membranes moist *Routine Neck Exam Neck: Present supple and full ROM *Routine Respiratory Exam Respiratory: Present decreased breath sounds; Absent accessory muscle use *Routine Cardiovascular Exam Cardiovascular: Present RRR, Normal S1 and Normal S2 *Routine Abdominal Exam Abdominal: Present soft, normoactive bowel sounds, tenderness (TTP Left CVA/Suprapubic regions) and guarding *Routine Rectal Exam Rectal:: deferred *Routine Genitalia Exam Genitalia:: deferred *Routine Extremities Exam Extremities: Present full ROM and normal capillary refill *Routine Skin Exam Skin: Present intact and normal turgor *Routine Neurological Exam Neurological: Present alert, oriented X3 and CN II-XII intact Assessment and Plan *Assessment and plan (1) Urinary tract infection: Status: Acute Qualifiers: Hematuria presence: with hematuria Urinary tract infection type: site unspecified Qualified Code(s): N39.0 - Urinary tract infection, site not specified; R31.9 - Hematuria, unspecified Category: Medical Code(s): N39.0 - Urinary tract infection, site not specified (2) Acute kidney injury (nontraumatic): Status: Acute Category: Medical Code(s): N17.9 - Acute kidney failure, unspecified (3) DENISSE (acute kidney injury): Status: Acute Category: Medical Code(s): N17.9 - Acute kidney failure, unspecified (4) Fibromyalgia: Status: Acute Category: Medical Code(s): M79.7 - Fibromyalgia (5) Insomnia: Status: Acute Category: Medical Code(s): G47.00 - Insomnia, unspecified (6) GERD (gastroesophageal reflux disease): Status: Acute Category: Medical Code(s): K21.9 - Gastro-esophageal reflux disease without esophagitis (7) Pain in right shoulder: Status: Acute Category: Medical Code(s): M25.511 - Pain in right shoulder Plan 49-year-old with past medical history of remote Lala-en-Y, fibromyalgia, GERD, anxiety. Patient presents complaining of 5 days left-sided/suprapubic discomfort, fevers, chills, diaphoresis, urinary hesitancy, and malaise. UA positive nitrates/leuk esterase, urinary WBC TNTC, +4 bacteria diagnosed with left pyelonephritis. Problems as listed below: Imaging/labwork reviewed at time of admission: ? CT abdomen/pelvis: Urethral thickening noted implying infection ?WBC 7.8, Hg 13, platelet 171, NA 127, K3.7, CL 94, serum bicarb 23, BUN 37, CR 1.8 GLU 135, AST 55, ALT 62, alk phos 170, lipase 37, serum hCG negative, LA 2.6-> 1.6. I will repeat CMP, mag, CBC with differential in AM. ?Nasopharyngeal influenza/SARS negative Left pyelonephritis acute, ? Patient has numerous antibiotic allergies including sulfa, Keflex, and Cipro. Admits to urticaria/rash with antibiotic allergies but denies angioedema or breathing difficulty. Will start Rocephin 2 g IV every 24, blood/urine cultures ordered by ED at time of admission. Will follow culture results. Oxycodone 10 mg p.o. every 6 as needed severe pain. Tramadol 100 mg p.o. every 6 as needed moderate pain. Tylenol 650 every 4 as needed pain or fever. Denies dysuria so no indication for Pyridium. Check respiratory panel and sputum culture since patient suffered from greenish sputum today. If sputum culture or respiratory panel shows atypical bacteria, will extend antibiotic coverage with IV Doxy or azithromycin. DENISSE secondary to pyelonephritis: ? 150 normal saline cc per hour with 40 mEq KCl x 24 hours. I will follow BUNs/creatinine values daily. Fibromyalgia: Continue tizanidine 4 mg p.o. nightly Insomnia: Trazodone 150 mg p.o. nightly, Seroquel 25 mg p.o. nightly GERD: Protonix 40 mg p.o. daily PPx: Heparin 5000 units SQ twice daily CODE STATUS: Full FEN: Regular MDM Copa: Moderate. Patient suffering from acute left-sided pyelonephritis with systemic symptoms of weakness, nausea, vomiting, fevers, chills. Data: High. See above. I spoke with the emergency room provider and agree patient requires admission for acute pyelonephritis IV antibiotics and pain meds. Risk: Moderate. Prescription drug management as listed above including IV antibiotics and MIVF. 35 minutes of total care time spent on patient by Dr. Hand 09/17/2024
[2024-09-17 22:12] LABS: HIV Combo NEGATIVE (Negative)
[2024-09-17] MEDS: TRAZODONE 50MG TABLET 150 MG PO (22:12)
[2024-09-17 22:13] LABS: Procalcitonin 88.8 ng/mL (0.0-2.0)
[2024-09-17] MEDS: QUETIAPINE 25MG TABLET 25 MG PO (22:13)
[2024-09-17] MEDS: PANTOPRAZOLE 40MG TABLET 40 MG PO (22:13)
[2024-09-17] MEDS: PROCHLORPERAZINE 10MG/2ML VIAL 10 MG IV (22:20)
[2024-09-17] MEDS: CEFTRIAXONE SODIUM 2 GM in 0.9 % SODIUM CHLORIDE 100 ML IV (22:20)
[2024-09-17 22:42] LABS: Reflex Lactic Add Lactic Reflex
[2024-09-17] MEDS: HEPARIN SODIUM 5,000 UNIT/ML VIAL 5000 UNIT SUBCUT (23:07)
[2024-09-17 23:41] LABS: Lactic Acid Follow Up (RFLX 1) 0.8 mmol/L (0.7-2.1)
[2024-09-17 23:52] VITALS: BP 112/64; PULSE 84; RESP 16; TEMP 36.7; O2SAT 97
[2024-09-18 03:49] VITALS: BP 161/69; PULSE 82; RESP 16; TEMP 37.8; O2SAT 98
--- NOTE | 2024-09-18 03:52 | PC.WOUNDNOTE ---
0255: Pt rang out and had c/o IV burning and hurting this nurse assessed IV site no changes from previous assessment, no signs of infiltration, upon palpation of the area in order to assess, Pt c/o pain and screamed take it out now . this nurse removed IV and informed pt we needed IV access to give proper care. Pt agreed to ultrasound IV insertion. 0305:Contacted JOSE Vivar for assistance. 0340: JOSE Vivar unable to obtain IV access via ultrasound. Yazan Gupta contacted, advised to give pt time to rest and try again later in the morning.
[2024-09-18 04:00] VITALS: BMI 27.4
[2024-09-18 07:00] LABS: Albumin Level 2.7 g/dl (3.5-5.0)
[2024-09-18 07:03] LABS: Alanine Aminotransferase 54 U/L (12-78); Alkaline Phosphatase 124 U/L (38-126); Aspartate Amino Transferase 61 U/L (14-36); Bilirubin,Direct 0.3 mg/dl (0.0-0.4); Bilirubin,Total 0.3 mg/dl (0.2-1.3); Total Protein,Serum 5.7 g/dl (6.3-8.2)
[2024-09-18 07:14] LABS: Mean Corpuscular Volume 93.3 fl (81-99); Red Blood Count 3.43 M/mm3 (4.20-5.40); White Blood Count 7.5 K/mm3 (4.8-10.8)
[2024-09-18 07:15] LABS: Basophils % 0.4 % (0.1-2.0); Lymphocytes # 0.4 K/mm3 (0.7-4.5); Lymphocytes % 5.2 % (10-50); Mean Corpuscular Hemoglobin 32.7 pg (27.0-31.2); Mean Platelet Volume 9.7 fl (7.4-10.4); Monocytes # 0.5 K/mm3 (0.1-1.0); Monocytes % 7.1 % (1.7-9.3); Neutrophils # 6.4 K/mm3 (1.8-7.8); Neutrophils % 86.4 % (37.0-80.0); Platelet Count 161 K/mm3 (142-424); Red Cell Distribution Width 15.1 % (11.5-17.5)
[2024-09-18 07:17] LABS: MANUAL DIFFERENTIAL MANUAL DIFFERENTIAL (MANUAL DIFF)
[2024-09-18 07:21] VITALS: BP 126/59; PULSE 114; RESP 18; TEMP 37.3; O2SAT 91
--- NOTE | 2024-09-18 07:25 | HMH.PHAINT1 ---
Pharmacy Intervention Comments: MEDICATION RECONCILIATION COMPLETED ON PATIENT USING EXTERNAL FILL HISTORY FROM PHARMACY. -PAULINE DIEHL, KANED
[2024-09-18 07:50] LABS: Chloride 104 mmol/L (98-107)
[2024-09-18 07:51] LABS: Potassium 3.5 mmoL/L (3.5-5.1); Sodium 129 mmol/L (136-145)
[2024-09-18 07:54] LABS: Anion Gap 10.5 mEq/L (5-15); Blood Urea Nitrogen 28 mg/dl (7-17); Carbon Dioxide 18 mmol/L (22.0-30.0); Creatinine Clearance Estimated 75 mL/min (50-200); Estimated Glomerular Filt Rate 53 ml/min (>60); GFR (African American) 64 ML/MIN (>60); Glucose 177 mg/dl (74-100); Magnesium 2.4 mg/dl (1.6-2.3)
[2024-09-18] MEDS: OXYCODONE 5MG IMMEDIATE RELEASE TABLET 10 MG PO (09:28)
[2024-09-18] MEDS: PROMETHAZINE 25MG TABLET 25 MG PO (09:28)
[2024-09-18] MEDS: HEPARIN SODIUM 5,000 UNIT/ML VIAL 5000 UNIT SUBCUT (09:29)
[2024-09-18 10:37] LABS: Adenovirus,PCR Not Detected (NotDetected); Bordetella Pertussis Not Detected (NotDetected); Chlamydophila Pneumoniae, PCR Not Detected (NotDetected); Coronavirus 19, PCR Not Detected (NotDetected); Coronavirus 229E Not Detected (NotDetected); Coronavirus NL63 Not Detected (NotDetected); Coronavirus OC43 Not Detected (NotDetected); Coronovirus HKU1,PCR Not Detected (NotDetected); Human Metapneumovirus Not Detected (NotDetected); Influenza A, PCR Not Detected (NotDetected); Influenza AH1, 2009 Not Detected (NotDetected); Influenza AH1, PCR Not Detected (NotDetected); Influenza AH3,PCR Not Detected (NotDetected); Influenza B, PCR Not Detected (NotDetected); Mycoplasma Pneumoniae, PCR Not Detected (NotDetected); Parainfluenza 1, PCR Not Detected (NotDetected); Parainfluenza 2, PCR Not Detected (NotDetected); Parainfluenza 3, PCR Not Detected (NotDetected); Parainfluenza 4, PCR Not Detected (NotDetected); Respiratory Syncytial Virus Not Detected (NotDetected); Rhinovirus/Enterovirus Not Detected (NotDetected)
[2024-09-18] MEDS: SODIUM CHLORIDE 3% 15ML NEB 3 ML IH (10:56)
[2024-09-18 10:58] VITALS: PULSE 77; RESP 18
[2024-09-18 11:47] VITALS: BP 146/80; PULSE 119; RESP 16; TEMP 37.4; O2SAT 97
[2024-09-18 11:55] LABS: Lymphocytes % 11 % (10-50); Monocytes % 3 % (2-9); Neutrophils % 86 % (42-76); Platelet Estimate Normal; RBC Morphology Normal; Total Cells Counted 100
[2024-09-18 12:09] LABS: Hemoglobin 11.2 g/dL (12.2-16.2)
[2024-09-18] MEDS: OXYCODONE 10MG W/APAP 325MG TABLET 1 EACH PO ×3 (12:12→22:27)
--- NOTE | 2024-09-18 14:53 | PC.NURSE ---
Aox 4, up ad ariane, new mid line to left FA SL, 90's on Ra, requires pain meds for left sided abd pain form kidney infection.
[2024-09-18] MEDS: TRAMADOL 50MG TABLET 100 MG PO (15:01)
[2024-09-18 15:44] VITALS: BP 113/63; PULSE 113; RESP 18; TEMP 36.8; O2SAT 96
--- NOTE | 2024-09-18 17:25 | P.PN_ITS ---
Subjective *Date: 09/18/24 *Time: 17:25 Interval history: Continues to feel significant generalized weakness, poor oral toleration, nausea. Switch to IV ceftriaxone and Zosyn. Has E. coli bacteremia growing. Exam Data for Last 24 hours Vital signs and Labs for Last 24 Hours: Temp Pulse Resp BP Pulse Ox O2 Del Method 98.3 F 113 H 18 113/63 96 Room Air 09/18/24 15:44 09/18/24 15:44 09/18/24 15:44 09/18/24 15:44 09/18/24 15:44 09/18/24 17:20 Laboratory Results - last 24 hr 09/17/24 17:35: WBC 7.8, RBC 4.03 L, Hgb 13.0, Hct 37.5, MCV 93.1, MCH 32.3 H, MCHC 34.7, RDW 14.7, Plt Count 171, MPV 9.8, Neut % (Auto) 84.4 H, Lymph % (Auto) 5.7 L, [place] % (Auto) 8.0, Eos % (Auto) 0.0 L, Baso % (Auto) 0.8, Neut # (Auto) 6.6, Lymph # (Auto) 0.5 L, [place] # (Auto) 0.6, Eos # (Auto) 0.0, Baso # (Auto) 6.0 H, Procalcitonin 88.8 H 09/17/24 18:21: SARS-CoV-2 (PCR) Not detected, Influenza A Untype (PCR) Not detected, Influenza Type B (PCR) Not detected 09/17/24 18:35: Sodium 127 L, Potassium 3.7, Chloride 94 L, Carbon Dioxide 23, Anion Gap 13.7, BUN 37 H, Creatinine 1.80 H, Estimated Creat Clear 46, Estimated GFR 30 L, Est GFR ( Amer) 36 L, Glucose 135 H, Lactate 1.6, Calcium 8.1 L , Phosphorus 3.3, Magnesium 2.2, Total Bilirubin 0.6, AST 55 H, ALT 62, Alkaline Phosphatase 170 H, Total Protein 6.8, Albumin 3.4 L, Globulin 3.4 H, Albumin/Globulin Ratio 1.0 L, Lipase 37, Serum HCG, Qual Negative, HIV Ag/Ab Combo Qual Negative 09/17/24 18:42: VBG pH 7.39, VBG pCO2 35.5, VBG pO2 29.3, VBG HCO3 21.2 L, VBG Total CO2 22.2 L, VBG O2 Saturation 58.9, VBG Base Excess -3.8 L, VBG Lactic Acid 2.6 H 09/17/24 20:00: Urine Color Yellow, Urine Appearance Clear, Urine pH 6.0, Ur Specific [place] 1.015, Urine Protein 2+ A, Urine Glucose (UA) Negative, Urine Ketones Negative, Urine Blood Trace-i, Urine Nitrate Positive A, Urine Bilirubin Negative, Urine Urobilinogen 0.2, Ur Leukocyte Esterase 2+ A, Urine RBC 5-10, Urine WBC Tntc, Ur Squamous Epith Cells 50-100, Urine Bacteria 4+ 09/17/24 23:25: Lactate 0.8 09/18/24 06:14: WBC 7.5, RBC 3.43 L, Hgb 11.2 L D, Hct 32.0 L, MCV 93.3, MCH 32.7 H, MCHC 35.0, RDW 15.1, Plt Count 161, MPV 9.7, Neut % (Auto) 86.4 H, Lymph % (Auto) 5.2 L, [place] % (Auto) 7.1, Eos % (Auto) 0.0 L, Baso % (Auto) 0.4, Neut # (Auto) 6.4, Lymph # (Auto) 0.4 L, [place] # (Auto) 0.5, Eos # (Auto) 0.0, Baso # (Auto) 0.0, Total Counted 100, Neutrophils % (Manual) 86 H, Lymphocytes % (Manual) 11, Monocytes % (Manual) 3, Platelet Estimate Normal, RBC Morphology Normal, Sodium 129 L, Potassium 3.5, Chloride 104, Carbon Dioxide 18 L, Anion Gap 10.5, BUN 28 H, Creatinine 1.10 H D, Estimated Creat Clear 75, Estimated GFR 53 L, Est GFR ( Amer) 64 D, Glucose 177 H D, Calcium 8.0 L, Magnesium 2.4 H, Total Bilirubin 0.3, Direct Bilirubin 0.3, Conjugated Bilirubin 0.0, Indirect Bilirubin 0.0, Unconjugated Bilirubin 0.0, AST 61 H, ALT 54, Alkaline Phosphatase 124, Total Protein 5.7 L, Albumin 2.7 L D 09/18/24 10:08: Chlamy pneumoniae PCR Not detected, Adenovirus (PCR) Not detected, B. pertussis DNA (PCR) Not detected, Coronavirus OC43 (PCR) Not detected, Coronavirus HKU1 (PCR) Not detected, Coronavirus 229E (PCR) Not detected, SARS-CoV-2 (PCR) Not detected, Coronavirus NL63 (PCR) Not detected, H uman Metapneumovir PCR Not detected, Influenza A (H1) PCR Not detected, Influ A (H1N1/09) PCR Not detected, Influenza A (H3) PCR Not detected, Influenza Type A (PCR) Not detected, Influenza Type B (PCR) Not detected, M. pneumoniae (PCR) Not detected, Parainfluenza 1 (PCR) Not detected, Parainfluenza 2 (PCR) Not detected, Parainfluenza 3 (PCR) Not detected, Parainfluenza 4 (PCR) Not detected, RSV (PCR) Not detected, Entero/Rhino (PCR) Not detected I & O for Last 24 hours: Intake & Output 09/15/24 09/16/24 09/17/24 09/18/24 23:59 23:59 23:59 23:59 Intake Total 1060 / 1060 Output Total 0 / 0 Balance 1060 / 1060 Weight 74.871 kg 74.871 kg Microbiology Reports for the Last 24 Hours: Microbiology 09/17/24 20:00 Urine,Clean Catch Urine Culture - Preliminary Gram Negative Rods 09/17/24 18:57 Blood Blood Culture - Preliminary 09/17/24 19:20 Blood Blood Culture - Preliminary Constitutional Constitutional: no acute distress *Routine HEENT Exam Head: Present normocephalic Eye: Present EOMI and PERRL ENT: Present mucous membranes moist *Routine Neck Exam Neck: Present supple; Absent lymphadenopathy *Routine Respiratory Exam Respiratory: Present CTA bilaterally *Routine Cardiovascular Exam Cardiovascular: Present RRR *Routine Abdominal Exam Abdominal: Present soft, normoactive bowel sounds and tenderness Comments: Right CVA tenderness *Routine Extremities Exam Extremities: Absent cyanosis, clubbing or edema *Routine Skin Exam Skin: Present warm; Absent rash *Routine Neurological Exam Neurological: Present alert and oriented X3 Assessment and Plan *Assessment and plan (1) Urinary tract infection: Status: Acute Qualifiers: Hematuria presence: with hematuria Urinary tract infection type: site unspecified Qualified Code(s): N39.0 - Urinary tract infection, site not specified; R31.9 - Hematuria, unspecified Category: Medical Code(s): N39.0 - Urinary tract infection, site not specified (2) Acute kidney injury (nontraumatic): Status: Acute Category: Medical Code(s): N17.9 - Acute kidney failure, unspecified (3) DENISSE (acute kidney injury): Status: Acute Category: Medical Code(s): N17.9 - Acute kidney failure, unspecified (4) Fibromyalgia: Status: Acute Category: Medical Code(s): M79.7 - Fibromyalgia (5) Insomnia: Status: Acute Category: Medical Code(s): G47.00 - Insomnia, unspecified (6) GERD (gastroesophageal reflux disease): Status: Acute Category: Medical Code(s): K21.9 - Gastro-esophageal reflux disease without esophagitis (7) Pain in right shoulder: Status: Acute Category: Medical Code(s): M25.511 - Pain in right shoulder Shayna Matos is a 49-year-old with past medical history of remote Lala-en-Y, fibromyalgia, GERD, anxiety. Patient presents complaining of 5 days left- sided/suprapubic discomfort, fevers, chills, diaphoresis, urinary hesitancy, and malaise. UA positive nitrates/leuk esterase, urinary WBC TNTC, +4 bacteria diagnosed with left pyelonephritis. Problems as listed below: #Right pyelonephritis acute #E. coli bacteremia ? Endorses right sided CVA tenderness, concomitant nausea/vomiting and generalized weakness. ? UA grossly abnormal, urine culture growing gram-negative rods. ? Started Zosyn out of concern for ESBL UTI, discontinued IV ceftriaxone as patient states she is no better than yesterday. ? Follow-up urine, blood culture speciation and sensitivities. ? Continue IV NS at 75 mL/h as patient continues to have nausea and poor oral toleration. ? Percocet for pain control, Compazine for nausea. DENISSE secondary to pyelonephritis: ? Creatinine improved to 1.1, 1.8 yesterday. Continue fluid rehydration as above. Fibromyalgia: Continue tizanidine 4 mg p.o. nightly Insomnia: Trazodone 150 mg p.o. nightly, Seroquel 25 mg p.o. nightly GERD: Protonix 40 mg p.o. daily PPx: Lovenox 40 mg CODE STATUS: Full FEN: Regular
[2024-09-18] MEDS: 0.9 % SODIUM CHLORIDE 1000ML 1,000 ML 75 ML IV (18:14)
[2024-09-18] MEDS: PIPERCILLIN/TAZO 3.375 GM in 0.9 % SODIUM CHLORIDE 50 ML IV (18:15)
[2024-09-18 20:00] VITALS: BP 140/88; PULSE 133; RESP 18; TEMP 36.5; O2SAT 96
[2024-09-18] MEDS: diphenhydrAMINE 50MG/ML VIAL 50 MG IV (20:59)
[2024-09-18] MEDS: QUETIAPINE 25MG TABLET 25 MG PO (21:01)
[2024-09-18] MEDS: TRAZODONE 50MG TABLET 100 MG PO (21:01)
[2024-09-18] MEDS: PANTOPRAZOLE 40MG TABLET 40 MG PO (21:01)
--- NOTE | 2024-09-18 21:26 | PC.NURSE ---
Midline dressing changed at this time at patient request.
[2024-09-18] MEDS: TIZANIDINE 4MG TABLET 4 MG PO (22:27)
--- NOTE | 2024-09-18 22:30 | P.EN_ITS ---
Patient currently complaining of extreme itching/urticaria on antibiotics. Patient extremely well-known to myself and I admitted patient yesterday for pyelonephritis. Patient has numerous allergies to antibiotics including Keflex, Cipro, and sulfa drugs; all causing urticaria/itching. Patient states itching not relieved with IV Benadryl. Also reviewed patient's follow-up lab work n oting urine culture positive for over 100,000 gram-negative rods. Patient currently on IV Zosyn. Will tentatively give patient 1 dose Solu-Medrol 40 mg IV to hopefully help with urticaria/itching. Continue IV Benadryl. Will also recommend nursing administer emollient/lotion to patient for itching problems.
[2024-09-18] MEDS: METHYLPREDNISOLONE SOD SUCC 40MG VIAL 40 MG IV (22:35)
[2024-09-19] VITALS: BP 110/61; PULSE 70; RESP 16; TEMP 36.5; O2SAT 97
[2024-09-19] MEDS: PIPERCILLIN/TAZO 3.375 GM in 0.9 % SODIUM CHLORIDE 50 ML IV ×2 (02:19→08:42)
[2024-09-19] MEDS: OXYCODONE 10MG W/APAP 325MG TABLET 1 EACH PO ×2 (02:20→08:41)
[2024-09-19 04:00] VITALS: BP 114/75; PULSE 58; RESP 16; TEMP 36.3; O2SAT 96; BMI 29.0
--- NOTE | 2024-09-19 06:08 | PC.NURSE ---
Alert and oriented. Independent in the room. Patient complained of pain, treated per mar. Patient is also scratching places on her legs, Hand is aware, meds given per MAR with relief. Barrier cream also helped patient. Pt did sweat through night, patient states she does this nightly at home. Call light in reach.
[2024-09-19 07:21] LABS: Chloride 104 mmol/L (98-107); Potassium 4.4 mmoL/L (3.5-5.1); Sodium 129 mmol/L (136-145)
[2024-09-19 07:24] LABS: Anion Gap 7.4 mEq/L (5-15); Blood Urea Nitrogen 24 mg/dl (7-17); Carbon Dioxide 22 mmol/L (22.0-30.0); Creatinine Clearance Estimated 72 mL/min (50-200); Estimated Glomerular Filt Rate 48 ml/min (>60); GFR (African American) 58 ML/MIN (>60); Glucose 224 mg/dl (74-100)
[2024-09-19 07:25] LABS: Magnesium 2.5 mg/dl (1.6-2.3)
[2024-09-19 07:44] VITALS: BP 111/61; PULSE 68; RESP 16; TEMP 36.4; O2SAT 95
[2024-09-19 07:58] LABS: Albumin Level 2.6 g/dl (3.5-5.0); Chloride 104 mmol/L (98-107); Potassium 4.5 mmoL/L (3.5-5.1); Sodium 129 mmol/L (136-145)
[2024-09-19 08:01] LABS: Alanine Aminotransferase 41 U/L (12-78); Albumin/Globulin Ratio 0.9 (1.1-1.8); Alkaline Phosphatase 105 U/L (38-126); Anion Gap 7.5 mEq/L (5-15); Aspartate Amino Transferase 40 U/L (14-36); Bilirubin,Total 0.4 mg/dl (0.2-1.3); Blood Urea Nitrogen 25 mg/dl (7-17); Carbon Dioxide 22 mmol/L (22.0-30.0); Creatinine Clearance Estimated 79 mL/min (50-200); Estimated Glomerular Filt Rate 53 ml/min (>60); GFR (African American) 64 ML/MIN (>60); Globulin 2.8 g/dL (1.3-3.2); Total Protein,Serum 5.4 g/dl (6.3-8.2)
[2024-09-19 08:02] LABS: Calcium 7.9 mg/dl (8.4-10.2); Glucose 218 mg/dl (74-100)
[2024-09-19 08:08] LABS: Basophils % 0.5 % (0.1-2.0); Hematocrit 30.9 % (37.0-47.0); Hemoglobin 10.1 g/dL (12.2-16.2); Lymphocytes # 0.5 K/mm3 (0.7-4.5); Lymphocytes % 10.2 % (10-50); Mean Corpuscular HGB Conc 32.7 g/dL (31.8-35.4); Mean Corpuscular Hemoglobin 31.5 pg (27.0-31.2); Mean Corpuscular Volume 96.3 fl (81-99); Mean Platelet Volume 10.2 fl (7.4-10.4); Monocytes # 0.2 K/mm3 (0.1-1.0); Monocytes % 3.8 % (1.7-9.3); Neutrophils # 3.7 K/mm3 (1.8-7.8); Neutrophils % 84.6 % (37.0-80.0); Platelet Count 143 K/mm3 (142-424); Red Blood Count 3.21 M/mm3 (4.20-5.40); Red Cell Distribution Width 15.8 % (11.5-17.5); White Blood Count 4.4 K/mm3 (4.8-10.8)
[2024-09-19] MEDS: diphenhydrAMINE 50MG/ML VIAL 50 MG IV (08:41)
[2024-09-19] MEDS: ENOXAPARIN 40MG/0.4ML SYRINGE 40 MG SUBCUT (08:41)
[2024-09-19] MEDS: 0.9 % SODIUM CHLORIDE 1000ML 1,000 ML 75 ML IV (08:42)
[2024-09-19] MEDS: TIZANIDINE 4MG TABLET 4 MG PO (11:29)
[2024-09-19] MEDS: BUSPIRONE HCL 10 MG TABLET 15 MG PO (11:35)
--- NOTE | 2024-09-19 12:59 | P.DS_ITS ---
General Admission date:: 09/17/24 HPI HPI HPI: 49-year-old with past medical history of remote Lala-en-Y, fibromyalgia, GERD, anxiety. Patient presents complaining of 5 days left-sided/suprapubic discomfort, nausea, fevers, chills, diaphoresis, urinary hesitancy, and malaise. Admits to some vomiting starting today. Also admits to greenish cough also starting today. States she suffered from diarrhea since Sunday. Describes abdominal discomfort as suprapubic, left flank at baseline, 7/10, tight, lasting 20 to 30 minutes, better when patient falls asleep. Admits to 5 days of urinary hesitancy but denies dysuria or urinary frequency. Denies chest pain, shortness of breath, known sick contacts, recent travel. Patient had a Lala-en-Y gastric bypass approximately 20 years ago. Takes B12/folate supplementation at baseline. UA positive nitrates/leuk esterase, urinary WBC TNTC, +4 bacteria diagnosed with left pyelonephritis. Hospital Course Hospital Course Hospital Course: Stephanie Matos is a 49-year-old with past medical history of remote Lala-en-Y, fibromyalgia, GERD, anxiety. Patient presents complaining of 5 days left- sided/suprapubic discomfort, fevers, chills, diaphoresis, urinary hesitancy, and malaise. UA positive nitrates/leuk esterase, urinary WBC TNTC, +4 bacteria diagnosed with right pyelonephritis. Problems as listed below: #Right acute pyelonephritis #E. coli bacteremia ? Endorsed right sided CVA tenderness, concomitant nausea/vomiting and generalized weakness. ? Urine and blood cultures show E Coli which is pansensitive. Blood cultures NGTD. - Clinically improved with Zosyn, ceftriaxone. Tolerating diet without N/V, ambulating independently. - Discharged with cefdinir for 9 more days, Percocet as needed for 3 days. Fluconazole for yeast infection. #DENISSE ? Creatinine improved to 1.1 from 1.8, with fluid rehydration. #Fibromyalgia - Continue tizanidine 4 mg p.o. nightly. #Insomnia - Trazodone 150 mg p.o. nightly, Seroquel 25 mg p.o. nightly. #GERD - Protonix 40 mg p.o. daily. Exam Data for Last 24 hours Vital signs and Labs for Last 24 Hours: Temp Pulse Resp BP Pulse Ox O2 Del Method 97.6 F 68 16 111/61 95 Room Air 09/19/24 07:44 09/19/24 07:44 09/19/24 07:44 09/19/24 07:44 09/19/24 07:44 09/19/24 12:58 Laboratory Results - last 24 hr 09/19/24 05:56: WBC 4.4 L D, RBC 3.21 L, Hgb 10.1 L, Hct 30.9 L, MCV 96.3, MCH 31.5 H, MCHC 32.7, RDW 15.8, Plt Count 143, MPV 10.2, Neut % (Auto) 84.6 H, Lymph % (Auto) 10.2, Gaston % (Auto) 3.8, Eos % (Auto) 0.0 L, Baso % (Auto) 0.5, Neut # (Auto) 3.7, Lymph # (Auto) 0.5 L, Gaston # (Auto) 0.2, Eos # (Auto) 0.0, Baso # (Auto) 0.0, Sodium 129 L 09/19/24 05:56: Sodium 129 L, Potassium 4.4 D 09/19/24 05:56: Potassium 4.5, Chloride 104 09/19/24 05:56: Chloride 104, Carbon Dioxide 22 09/19/24 05:56: Carbon Dioxide 22, Anion Gap 7.4 09/19/24 05:56: Anion Gap 7.5, BUN 24 H 09/19/24 05:56: BUN 25 H, Creatinine 1.20 H 09/19/24 05:56: Creatinine 1.10 H, Estimated Creat Clear 72 09/19/24 05:56: Estimated Creat Clear 79, Estimated GFR 48 L 09/19/24 05:56: Estimated GFR 53 L, Est GFR ( Amer) 58 L 09/19/24 05:56: Est GFR ( Amer) 64, Glucose 224 H D 09/19/24 05:56: Glucose 218 H, Calcium 8.0 L 09/19/24 05:56: Calcium 7.9 L, Magnesium 2.5 H, Total Bilirubin 0.4, AST 40 H D, ALT 41, Alkaline Phosphatase 105, Total Protein 5.4 L, Albumin 2.6 L, Globulin 2.8, Albumin/Globulin Ratio 0.9 L I & O for Last 24 hours: Intake & Output 09/16/24 09/17/24 09/18/24 09/19/24 23:59 23:59 23:59 23:59 Intake Total 1350 / 1350 1267 / 1267 Output Total 0 / 0 Balance 1350 / 1350 1267 / 1267 Weight 74.871 kg 74.871 kg 78.97 kg Microbiology Reports for the Last 24 Hours: Microbiology 09/18/24 12:15 Blood Blood Culture - Preliminary NO GROWTH AFTER 24 HOURS 09/17/24 18:57 Blood Blood Culture - Preliminary Gram Negative Rods 09/17/24 19:20 Blood Blood Culture - Preliminary Gram Negative Rods 09/18/24 11:30 Blood Blood Culture - Preliminary 09/17/24 20:00 Urine,Clean Catch Urine Culture - Final Escherichia coli Constitutional Constitutional: no acute distress *Routine HEENT Exam Head: Present normocephalic Eye: Present EOMI and PERRL ENT: Present mucous membranes moist *Routine Neck Exam Neck: Present supple; Absent lymphadenopathy *Routine Respiratory Exam Respiratory: Present CTA bilaterally *Routine Cardiovascular Exam Cardiovascular: Present RRR *Routine Abdominal Exam Abdominal: Present soft, normoactive bowel sounds and tenderness Comments: Right CVA tenderness *Routine Extremities Exam Extremities: Absent cyanosis, clubbing or edema *Routine Skin Exam Skin: Present warm; Absent rash *Routine Neurological Exam Neurological: Present alert and oriented X3 Results Data Completed and Pending Labs on day of discharge: Labs from last 24 hours 09/19/24 09/19/24 09/19/24 05:56 05:56 05:56 WBC RBC Hgb Hct MCV MCH MCHC RDW Plt Count MPV Neut % (Auto) Lymph % (Auto) Gaston % (Auto) Eos % (Auto) Baso % (Auto) Neut # (Auto) Lymph # (Auto) Gaston # (Auto) Eos # (Auto) Baso # (Auto) Sodium Potassium Chloride Carbon Dioxide Anion Gap BUN Creatinine Estimated Creat Clear Estimated GFR Est GFR ( Amer) 64 Glucose 218 H 224 H D Calcium 7.9 L 8.0 L Magnesium 2.5 H Total Bilirubin 0.4 AST 40 H D ALT 41 Alkaline Phosphatase 105 Total Protein 5.4 L Albumin 2.6 L Globulin 2.8 Albumin/Globulin Ratio 0.9 L 09/19/24 09/19/24 09/19/24 05:56 05:56 05:56 WBC RBC Hgb Hct MCV MCH MCHC RDW Plt Count MPV Neut % (Auto) Lymph % (Auto) Gaston % (Auto) Eos % (Auto) Baso % (Auto) Neut # (Auto) Lymph # (Auto) Gaston # (Auto) Eos # (Auto) Baso # (Auto) Sodium Potassium Chloride Carbon Dioxide Anion Gap BUN Creatinine 1.10 H Estimated Creat Clear 79 72 Estimated GFR 53 L 48 L Est GFR ( Amer) 58 L Glucose Calcium Magnesium Total Bilirubin AST ALT Alkaline Phosphatase Total Protein Albumin Globulin Albumin/Globulin Ratio 09/19/24 09/19/24 09/19/24 05:56 05:56 05:56 WBC RBC Hgb Hct MCV MCH MCHC RDW Plt Count MPV Neut % (Auto) Lymph % (Auto) Gaston % (Auto) Eos % (Auto) Baso % (Auto) Neut # (Auto) Lymph # (Auto) Gaston # (Auto) Eos # (Auto) Baso # (Auto) Sodium Potassium Chloride Carbon Dioxide 22 Anion Gap 7.5 7.4 BUN 25 H 24 H Creatinine 1.20 H Estimated Creat Clear Estimated GFR Est GFR ( Amer) Glucose Calcium Magnesium Total Bilirubin AST ALT Alkaline Phosphatase Total Protein Albumin Globulin Albumin/Globulin Ratio 09/19/24 09/19/24 09/19/24 05:56 05:56 05:56 WBC RBC Hgb Hct MCV MCH MCHC RDW Plt Count MPV Neut % (Auto) Lymph % (Auto) Gaston % (Auto) Eos % (Auto) Baso % (Auto) Neut # (Auto) Lymph # (Auto) Gaston # (Auto) Eos # (Auto) Baso # (Auto) Sodium 129 L Potassium 4.5 4.4 D Chloride 104 104 Carbon Dioxide 22 Anion Gap BUN Creatinine Estimated Creat Clear Estimated GFR Est GFR ( Amer) Glucose Calcium Magnesium Total Bilirubin AST ALT Alkaline Phosphatase Total Protein Albumin Globulin Albumin/Globulin Ratio 09/19/24 05:56 WBC 4.4 L D RBC 3.21 L Hgb 10.1 L Hct 30.9 L MCV 96.3 MCH 31.5 H MCHC 32.7 RDW 15.8 Plt Count 143 MPV 10.2 Neut % (Auto) 84.6 H Lymph % (Auto) 10.2 Gaston % (Auto) 3.8 Eos % (Auto) 0.0 L Baso % (Auto) 0.5 Neut # (Auto) 3.7 Lymph # (Auto) 0.5 L Gaston # (Auto) 0.2 Eos # (Auto) 0.0 Baso # (Auto) 0.0 Sodium 129 L Potassium Chloride Carbon Dioxide Anion Gap BUN Creatinine Estimated Creat Clear Estimated GFR Est GFR ( Amer) Glucose Calcium Magnesium Total Bilirubin AST ALT Alkaline Phosphatase Total Protein Albumin Globulin Albumin/Globulin Ratio Preliminary micro results at discharge 09/18/24 12:15 Blood Culture - Preliminary Blood NO GROWTH AFTER 24 HOURS 09/17/24 18:57 Blood Culture - Preliminary Blood Gram Negative Rods 09/17/24 19:20 Blood Culture - Preliminary Blood Gram Negative Rods 09/18/24 11:30 Blood Culture - Preliminary Blood DS: Diagnosis Discharge Diagnosis (1) Urinary tract infection: Status: Acute Code(s): N39.0 - Urinary tract infection, site not specified Qualifiers: Hematuria presence: with hematuria Urinary tract infection type: site unspecified Qualified Code(s): N39.0 - Urinary tract infection, site not sp ecified; R31.9 - Hematuria, unspecified (2) Acute kidney injury (nontraumatic): Status: Acute Code(s): N17.9 - Acute kidney failure, unspecified (3) DENISSE (acute kidney injury): Status: Acute Code(s): N17.9 - Acute kidney failure, unspecified (4) Fibromyalgia: Status: Acute Code(s): M79.7 - Fibromyalgia (5) Insomnia: Status: Acute Code(s): G47.00 - Insomnia, unspecified (6) GERD (gastroesophageal reflux disease): Status: Acute Code(s): K21.9 - Gastro-esophageal reflux disease without esophagitis (7) Pain in right shoulder: Status: Acute Code(s): M25.511 - Pain in right shoulder Meds Home Medications and Allergies Home Medications ?Medication ?Instructions ?Recorded ?Confirmed ?Type baclofen 10 mg tablet 10 mg PO TID 09/17/24 09/17/24 History buspirone 15 mg tablet 15 mg PO TIDP PRN Anxiety 09/17/24 09/18/24 History cyanocobalamin (vitamin B-12) 1,000 mcg IM MONTHLY 09/17/24 09/17/24 History 1,000 mcg/mL injection solution dicyclomine 20 mg tablet 20 mg PO TID 09/17/24 09/18/24 History pantoprazole 40 mg tablet,delayed 40 mg PO BID 09/17/24 09/17/24 History release quetiapine 25 mg tablet 25 mg PO HS 09/17/24 09/17/24 History tizanidine 4 mg capsule 4 mg PO TIDP PRN Muscle Spasm 09/17/24 09/18/24 History trazodone 150 mg tablet 150 mg PO HS 09/17/24 09/17/24 History cefdinir 300 mg capsule 300 mg PO BID 9 days #18 caps 09/19/24 Rx oxycodone-acetaminophen 5 mg-325 1 tab PO Q6HP PRN Moderate Pain 09/19/24 Rx mg tablet (4-6) 3 days #12 tabs fluconazole 200 mg tablet 200 mg PO DAILY 3 days #3 tabs 09/22/24 Rx New Prescriptions to Start Prescriptions: cefdinir Philipp,Germán fluconazole Philipp,Germán oxycodone-acetaminophen Germán Segal Allergies Allergy/AdvReac Type Severity Reaction Status Date / Time aspirin Allergy Unknown Verified 07/24/24 13:29 allergy reaction cephalexin (From Keflex) Allergy Unknown Verified 07/24/24 13:29 allergy reaction ciprofloxacin (From Cipro) Allergy Unknown Verified 07/24/24 13:29 allergy reaction morphine Allergy Unknown Verified 07/24/24 13:29 allergy reaction NSAIDS (Non-Steroidal Allergy Unknown Verified 07/24/24 13:29 Anti-Inflamma allergy reaction ondansetron (From Zofran) Allergy Unknown Verified 07/24/24 13:29 allergy reaction Sulfa (Sulfonamide AdvReac Unknown Verified 07/24/24 13:29 Antibiotics) allergy reaction Discharge Plan Disposition Patient Disposition: Home, Self-Care Condition: Fair Discharge Order Discharge Orders: Discharge Order (Routine); Ordered 09/19/24 Ordered By: Germán Segal Follow up Plan Prescriptions/Medication Reconciliation: New cefdinir 300 mg capsule 300 mg PO BID 9 Days Qty: 18 0RF oxycodone-acetaminophen 5-325 mg Tablet 1 tab PO Q6HP PRN (Reason: Moderate Pain (4-6)) 3 Days Qty: 12 0RF fluconazole 200 mg tablet 200 mg PO DAILY 3 Days Qty: 3 0RF Continued quetiapine 25 mg tablet 25 mg PO HS Patient Comments: TAKE 1 TABLET BY MOUTH EVERY NIGHT cyanocobalamin (vitamin B-12) 1,000 mcg/mL solution 1,000 mcg IM MONTHLY Patient Comments: INJECT 1 ML IN THE MUSCLE EVERY 30 DAYS trazodone 150 mg tablet 150 mg PO HS Patient Comments: TAKE 1 TABLET BY MOUTH EVERY NIGHT buspirone 15 mg tablet 15 mg PO TIDP PRN (Reason: Anxiety) Patient Comments: TAKE 1 TABLET BY MOUTH THREE TIMES DAILY NEEDED FOR ANXIETY tizanidine 4 mg capsule 4 mg PO TIDP PRN (Reason: Muscle Spasm) Patient Comments: TAKE 1 CAPSULE BY MOUTH THREE TIMES DAILY NEEDED FOR MUSCLE SPASMS dicyclomine 20 mg tablet 20 mg PO TID baclofen 10 mg tablet 10 mg PO TID Patient Comments: TAKE 1 TABLET BY MOUTH THREE TIMES DAILY pantoprazole 40 mg tablet,delayed release (DR/EC) 40 mg PO BID Patient Comments: TAKE 1 TABLET BY MOUTH DAILY Problem Reconciliation Problems Reviewed?: Yes Patient Discharge Instructions Stand Alone Forms: [facility] Work Release Patient Instructions: DI for Urinary Tract Infection (UTI), DI for Bacteremia- Adult Print Language: Dutch Providers Primary Care Provider: Provider,Referral Admit Provider: Jossue Hand Attending Provider: Jossue Hand
[2024-09-20 05:26] LABS: HCV Ab Non Reactive (Non Reactive)
--- NOTE | 2024-09-22 10:59 | SW/DCPLANNER ---
Spoke with patient on the phone. Patient stated that she is doing well. 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 Rad Lozano
== END 2024-09-19 14:00 | disposition home or self-care (01) ==
LOC: ER 21:05 → 2ND 09-18 05:36
PROVIDERS: Physician Assistant; Student in an Organized Health Care Education/Training Program; Admitting Provider Internal Medicine; Emergency Provider Student in an Organized Health Care Education/Training Program; Visit Provider Internal Medicine
DX: N10 Acute pyelonephritis (principal); R78.81 Bacteremia; B96.20 Unspecified Escherichia coli [E. coli] as the cause of diseases classified elsewhere; N17.9 Acute kidney failure, unspecified; M79.7 Fibromyalgia; K21.9 Gastro-esophageal reflux disease without esophagitis; G47.00 Insomnia, unspecified; F51.9 Sleep disorder not due to a substance or known physiological condition, unspecified; Z98.84 Bariatric surgery status; Z79.899 Other long term (current) drug therapy
CPT/HCPCS: 36410; 36415; 74177; 80048; 80053; 80076; 81001; 82803; 83605; 83690; 83735; 84100; 84145; 84703; 85007; 85025; 86803; 87040; 87077; 87086; 87088; 87186; 87389; 87633; 87636; 99291; J0131; J0696; J0780; J1171; J1200; J1644; J1650; J1956; J2543; J2550; J2919; J7030; J7120; Q9967

== ENCOUNTER 2025-04-08 19:37 | Emergency (ER) | payer BC, SELFPAY ==
--- OUTSIDE RECORDS SUMMARY | 2024-06-15 16:43 | XMS_ITS | Continuity of Care Document ---
Author Organization [facility]. If a dditional information is needed, contact Health Information Management at [phone] [address] [place] [address] Phone Care Team Providers Care Minilab Operator Name Role Phone Unavailable Unavailable Unavailable Unavailable Unavailable Unavailable Unavailable Unavailable Unavailable Unavailable Unavailable Unavailable Unavailable Unavailable Unavailable Unavailable Unavailable Unavailable Problems Breast lump Onset:15-Jun-2024 [place] Becca PA-C Status:Acute Lymphadenopathy Onset:15-Jun-2024 Wing[place] Becca PA-C Status:Acute Dysphagia Onset:15-Jun-2024 [facility] Status:Acute Functional Status Functional finding 15-Jun-2024 Functional finding 15-Jun-2024 Functional finding 15-Jun-2024 Allergies and Adverse Reactions morphine(Allergy) Onset: 15-Jun-2024 Reaction:Unknown Cephalexin(Allergy) Onset: 15-Jun-2024 Reaction:Unknown Sulfamethoxazole(Allergy) Onset: 15-Jun-2024 Reaction:Unknown trimethoprim(Allergy) Onset: 15-Jun-2024 Reaction:Unknown ciprofloxacin(Allergy) Onset: 15-Jun-2024 Reaction:Unknown ondansetron(Allergy) Onset: 15-Jun-2024 Reaction:Unknown Medications lidocaine hydrochloride 20 MG/ML Mucous Membrane Topical Solution;15 ML STAT Quantity:1 Wingfeld Becca PA-C Start:00-Fek-5396Trw:15-Jun-2024 Comments:Provider Administration Instructions:Formulary Magic Mouthwash(StomatitisCocktail); each 15 ml contains:Lidocaine Viscous 5 mlBenadryl Liquid 5 ml acetaminophen 325 MG / HYDROcodone bitartrate 5 MG Oral Tablet;1 TAB X1ED Quantity:1 Wingfeld Becca PA-C Start:64-Sgs-4207Krs:15-Jun-2024 calcium chloride 0.2 MG/ML / potassium chloride 0.3 MG/ML / sodium chloride 6 MG/ML / sodium lactate 3.1 MG/ML Injectable Solution;1000 ML .Q0M Quantity:1 Patrick Hudson PA-C Start:32-Mar-7532Klj:15-Jun-2024 1 ML ketorolac tromethamine 30 MG/ML Injection;15 MG X1ED Quantity:1 Patrick Hudson PA-C Start:83-Wnw-6500Xcu:15-Jun-2024 Comments:Provider Administration Instructions:Do not administer systemic therapy for more than5 consecutive days regardless of route (PO,Nasal, IV, or IM). 2 ML droPERidol 2.5 MG/ML Injection;2.5 MG X1ED Quantity:1 Patrcik Hudson PA-C Start:60-Vnl-3950Vpy:15-Jun-2024 Procedures Neck with ContrastResult:[place] [address] [place] [address] Diagnostic Imaging ReportPatient Name: SERGEY BRAND Acct: [id number]: 1975 Age: 49 Sex: F MR#: [id number] Date/Time: 06/15/24 1026 Admit Date/Time:Patient Status: [facility] ER Ordering Physician: Marck Valerotient Location: [facility] Attending Physician:Accession Number(s): [id number](s): Computed Tomography CT Neck with conCPT Code(s): [id number] INDICATION: Abd pain, difficulty swallowing TECHNIQUE: Helical images were obtained through the neck, and reconstructed in the axial plane on bone andsoft tissue algorithm at multiple slice thicknesses. Coronal and sagittal reformatted images werecreated. 75 mL of Isovue 370 were administered intravenously. Total DLP (Dose-Length Product): 404 mGy*cm. Please note: The reported value represents the totalof one or more individual components during the CT acquisition on this date and at this time, and assuch, the same value may appear in more than one CT report depending on the interpreting/reportingphysicians. COMPARISON: None. FINDINGS: Diagnostic Quality: Artifacts from dental amalgam. Soft Tissues: No masses are present within the soft tissues of the neck. Lymph Nodes: There is a right level 4B lymph node, image #52 of axial series 2, image #62 sagittalseries 602. It is not enlarged by size criteria in the axial plane, measuring 4.2 mm, although iselongated in the sagittal plane up to 16 mm. Pharynx/Larynx: No definite pharyngeal or laryngeal masses are present. Oral Cavity: No large masses are present within the oral cavity within the limitations of thestudy. Parapharyngeal Space: No lesions are present within the parapharyngeal space. Salivary Glands: The parotid and submandibular glands are normal in size without definite focallesions. Thyroid: No focal thyroid lesions are present, within the limitations of the study. Orbits/Paranasal Sinuses/Skull Base: No orbital masses are present within the visualized portionsof the orbits. The visualized paranasal sinuses are grossly clear. Within the skull base, there isPatient Name: SERGEY BRAND Acct: [id number] Unit: [id number] Page 1no focal lesion or destructive process. Bones/Spine: No bony destructive lesion is present. Lung Apices: Please see separately dictated CT chest. CT/CT Neck with conIMPRESSION:There is no pharyngeal, laryngeal or soft tissue mass.Right level 4 lymph node, prominent in size in the sagittal plane although a small axial plane. Thislymph node is likely nonspecific although could be correlated clinically.CRITICAL RESULT:No.COMMUNICATION:Per this written report.By electronically signing this report, I, the attending physician, attest that I have personallyreviewed the images/data for the above examination(s) and I agree with the final edited report.Drafted by Dank Solano MD on 06/15/2024 1:13 PMFinal report signed by Kajal Kamara MD on 06/15/2024 3:16 PM<Electronically signed by Kajal Kamara MD in OV>06/15/24 1516 Thank you for choosing [facility]'s Imaging Services Dictated By: Kajal Kamara MD DictatedDate/Time: 06/15/241515Transcribed By: Kajal Kamara MDTranscribed Date/Time: 06/15/241515Technologist: Lizzeth Iyer To: Report ID: [id number] -End of Report-Patient Name: SERGEY BRAND Acct: [id number] Unit: [id number] Page 2 Date:15-Jun-2024 Status:Completed Abdomen and Pelvis w ConResult:[address] [address] Diagnostic Imaging ReportPatient Name: SERGEY BRAND Acct: [id number]: 1975 Age: 49 Sex: F MR#: [id number] Date/Time: 06/15/24 1026 Admit Date/Time:Patient Status: REG ER Ordering Physician: PIEDAD ValeroCPatient Location: [facility] Attending Physician:Accession Number(s): [id number](s): Computed Tomography CT Abdomen And Pelvis w conCPT Code(s): 31053PJPTERBP INDICATION: Abd pain, difficulty swallowing TECHNIQUE: Imaging of the chest abdomen and pelvis was performed, from thoracic inlet through pubic symphysis,using spiral technique, following administration of IV contrast, Isovue 370, 75 mL according to theCT Chest and CT Abdomen/Pelvis protocol. Delayed (excretory phase) images were performed through thekidneys. Reformatted images in the coronal, sagittal, and oblique planes were generated from theaxial data set to facilitate diagnostic accuracy. Total DLP (Dose-Length Product): 1352 mGy*cm. Please note: The reported value represents the totalof one or more individual components during the CT acquisition on this date and at this time, and assuch, the same value may appear in more than one CT report depending on the interpreting/reportingphysicians. COMPARISON: None. FINDINGS: Chest: Aorta/Vessels: The thoracic aorta is unremarkable. No large central filling defect within thepulmonary arteries to suggest pulmonary embolism. Pleural/Pericardial Space: No pneumothorax. No pleural effusions. No pericardial effusion. Lymph Nodes: No lymphadenopathy within the chest. Lungs: No acute airspace opacity. Calcified granuloma superior segment right lower lobe. Mediastinum: Small hiatal hernia. Prior gastric bypass. Chest Wall: Nodular opacity along the inferior aspect of the right breast series 5 #187 measuredapproximately 1.3 cm may represent fibroglandular tissue. Suggest correlation with nonemergentmammogram and ultrasound. Bones: No acute fracture within the chest. Abdomen:Patient Name: SERGEY BRAND Acct: [id number] Unit: [id number] Page 1 Liver/Gallbladder/Biliary System: The liver demonstrates homogeneous enhancement. Priorcholecystectomy. Mild intra and extrahepatic biliary ductal dilatation may be related topostcholecystectomy changes. Spleen: The spleen enhances homogeneously. Pancreas: The pancreas enhances homogeneously. Adrenals: The adrenals are morphologically unremarkable. Kidneys: The kidneys demonstrate symmetric nephrogram and excretion. Contrast in the renalcollecting system may obscure small stones. No hydronephrosis. Bowel/Mesentery: Post operative changes from Lala-en-Y gastric bypass surgery. No inflammatorychanges or leak surrounding the anastomosis.. No evidence of bowel obstruction due to internalhernia or volvulus. The large bowel loops are not dilated. No evidence of appendicitis. Smallhiatal hernia. Vessels/Lymph Nodes: The abdominal aorta is unremarkable. No lymphadenopathy within the abdomen orpelvis. Fluid Survey: No free fluid in the abdomen. No free fluid in the pelvis. Pelvis: The pelvic viscera are unremarkable. Body Wall: Subcutaneous opacities in the right gluteal region may represent sequela from priorinjection. Bones: Old wedge compression fracture T12 and L1. CT/CT Abdomen And Pelvis w conIMPRESSION:1. No acute findings in the chest.2. No acute findings in the abdomen or pelvis.3.Nodular opacity along the inferior aspect of the right breast series 5 #187 measured approximately1.3 cm may represent fibroglandular tissue. Suggest correlation with nonemergent mammogram andultrasoundCRITICAL RESULT:No.COMMUNICATION:Per this written report.Drafted by Suleiman Glover MD on 06/15/2024 12:26 PMFinal report signed by Suleiman Glover MD on 06/15/2024 12:37 PM<Electronically signed by Suleiman Glover MD in OV>06/15/24 1237Patient Name: SERGEY BRAND Acct: [id number] Unit: [id number] Page 2 Thank you for choosing [facility]'s Imaging Services Dictated By: VICENTE Rochaictated Date/Time: 06/15/24 1237Transcribed By: Suleiman Glover MDTranscribed Date/Time: 06/15/24 1237Technologist: Lizzeth Iyer To: Report ID: [id number] -End of Report-Patient Name: SERGEY BRAND Acct: [id number] Unit: [id number] Page 3 Date:15-Jun-2024 Status:Completed Chest with ContrastResult:[place] [address] Diagnostic Imaging ReportPatient Name: SERGEY BRAND Acct: [id number]: 1975 Age: 49 Sex: F MR#: [id number] Date/Time: 06/15/24 1026 Admit Date/Time:Patient Status: REG ER Ordering Physician: PIEDAD ValeroCPatient Location: [facility] Attending Physician:Accession Number(s): [id number](s): Computed Tomography CT Chest with ContrastCPT Code(s): 83669BGNMLBJX INDICATION: Abd pain, difficulty swallowing TECHNIQUE: Imaging of the chest abdomen and pelvis was performed, from thoracic inlet through pubic symphysis,using spiral technique, following administration of IV contrast, Isovue 370, 75 mL according to theCT Chest and CT Abdomen/Pelvis protocol. Delayed (excretory phase) images were performed through thekidneys. Reformatted images in the coronal, sagittal, and oblique planes were generated from theaxial data set to facilitate diagnostic accuracy. Total DLP (Dose-Length Product): 1352 mGy*cm. Please note: The reported value represents the totalof one or more individual components during the CT acquisition on this date and at this time, and assuch, the same value may appear in more than one CT report depending on the interpreting/reportingphysicians. COMPARISON: None. FINDINGS: Chest: Aorta/Vessels: The thoracic aorta is unremarkable. No large central filling defect within thepulmonary arteries to suggest pulmonary embolism. Pleural/Pericardial Space: No pneumothorax. No pleural effusions. No pericardial effusion. Lymph Nodes: No lymphadenopathy within the chest. Lungs: No acute airspace opacity. Calcified granuloma superior segment right lower lobe. Mediastinum: Small hiatal hernia. Prior gastric bypass. Chest Wall: Nodular opacity along the inferior aspect of the right breast series 5 #187 measuredapproximately 1.3 cm may represent fibroglandular tissue. Suggest correlation with nonemergentmammogram and ultrasound. Bones: No acute fracture within the chest. Abdomen:Patient Name: SERGEY BRAND Acct: [id number] Unit: [id number] Page 1 Liver/Gallbladder/Biliary System: The liver demonstrates homogeneous enhancement. Priorcholecystectomy. Mild intra and extrahepatic biliary ductal dilatation may be related topostcholecystectomy changes. Spleen: The spleen enhances homogeneously. Pancreas: The pancreas enhances homogeneously. Adrenals: The adrenals are morphologically unremarkable. Kidneys: The kidneys demonstrate symmetric nephrogram and excretion. Contrast in the renalcollecting system may obscure small stones. No hydronephrosis. Bowel/Mesentery: Post operative changes from Lala-en-Y gastric bypass surgery. No inflammatorychanges or leak surrounding the anastomosis.. No evidence of bowel obstruction due to internalhernia or volvulus. The large bowel loops are not dilated. No evidence of appendicitis. Small hiatal hernia. Vessels/Lymph Nodes: The abdominal aorta is unremarkable. No lymphadenopathy within the abdomen orpelvis. Fluid Survey: No free fluid in the abdomen. No free fluid in the pelvis. Pelvis: The pelvic viscera are unremarkable. Body Wall: Subcutaneous opacities in the right gluteal region may represent sequela from priorinjection. Bones: Old wedge compression fracture T12 and L1. CT/CT Chest with ContrastIMPRESSION:1. No acute findings in the chest.2. No acute findings in the abdomen or pelvis.3.Nodular opacity along the inferior aspect of the right breast series 5 #187 measured approximately1.3 cm may represent fibroglandular tissue. Suggest correlation with nonemergent mammogram andultrasoundCRITICAL RESULT:No.COMMUNICATION:Per this written report.Drafted by Suleiman Glover MD on 06/15/2024 12:26 PMFinal report signed by Suleiman Glover MD on 06/15/2024 12:37 PM<Electronically signed by Suleiman Glover MD in OV>06/15/24 1237Patient Name: SERGEY BRAND Acct: [id number] Unit: [id number] Page 2 Thank you for choosing [facility] Imaging Services Dictated By: VICENTE Rochaictated Date/Time: 06/15/24 1237Transcribed By: Suleiman Glover MDTranscribed Date/Time: 06/15/24 1237Technologist: Lizzeth Iyer To: Report ID: [id number] -End of Report-Patient Name: SERGEY BRAND Acct: [id number] Unit: [id number] Page 3 Date:15-Jun-2024 Status:Completed Results Urinalysis Rfx to UCult Ordered On:15-Jun-2024 C omments:Specimen Comments: Indication for culture Dysuria/FrequencySpecimen description Clean catch 15-Jun-2024 11:20 Color UrCOLORLESS Appearance UrClear pH Ur Test Strip6.5(Normal) Range:5-8.5 Specific [place] Ur1.004(Low) Range:1.01-1.025 Protein Ur Test StripNegativemg/dL Range:Neg-Trace mg/dL Glucose Ur Test StripNormalmg/dL Range:Norm-Trace mg/dL Ketone Ur Test StripNegativemg/dL Range:Neg-Trace mg/dL Blood Ur Test StripNegativemg/dL(Normal ) Range:Neg-Trace mg/dL Nitrite Ur Test StripNegative Range:Negative Bilirubin Ur Test StripNegative Range:Negative Urobilinogen Ur Test StripNormal Range:Normal Leuk Esterase Ur Rufina t StripNegative{Ean/uL}(Nor mal) Range:0-25{Ean/uL} CBC w Automated Differential Ordered On:15-Jun-2024 11:11 White Blood Count6.4K/uL(Normal) Range:4.8K/uL-10.8K/uL Red Blood Cell Count4.71{M/uL}(Normal) Range:4.1{M/uL}-5.3{M/uL} Lnphjdbyqp87.6g/dL(Low) Range:12 .4g/dL-16.2g/dL Vxelcwloai98.8%(Low) Range:38.9% -44.7% Mean Corpuscular Qrhlby17.4fL(Normal) Range:81fL-96fL Mean Corpuscular Lzlfmtiiwm25.6pg(Low) Range:27.5pg-33.4pg Mean Corpuscular Hgb Djskqnk28.9g/dL(Low) Range:32g/dL-36g/dL RDW Coefficient of Wkelqbymj14.8%(High) Range:12%-14.8% Platelet Oabvc861W/uL(Normal) Range:153K/uL-361K/uL Mean Platelet Volume9.1fL(Normal) Range:8.5fL-12.1fL Granulocytes Percent-Auto82.1%(Normal) Range:43%-83.7% Immature Granulocyte s percent0.2%(Normal) Range:0%-0.5% Lymphocytes Percent-Auto13.0%(Normal) Range:9.7%-44.3% Monocytes Percent-Auto4.2%(Normal) Range:1.8%-12.7% Eosinophils Percent-Auto0.0%(Normal) Range:0%-6% Basophils Percent-Auto0.5%(Normal) Range:0%-1% Nucleated RBC relati ve auto0.0%(Normal) Range:0%-0.2% Granulocytes Absolute-Auto5.23K/uL(Nor mal) Range:1.4K/uL-7.7K/uL Immature Granulocyte s absolute0.01K/uL(Normal) Range:0K/uL-0.08K/uL Lymphocytes Absolute-Auto0.83K/uL(Nor mal) Range:0.8K/uL-2.9K/uL Monocytes Absolute-Auto0.27K/uL(Nor mal) Range:0.2K/uL-0.8K/uL Eosinophils Absolute-Auto0.00K/uL(Nor mal) Range:0K/uL-0.3K/uL Basophils Absolute-Auto0.03K/uL(Nor mal) Range:0K/uL-0.04K/uL Nucleated RBC absolu te auto0.00K/uL(Normal) Range:0K/uL-0.01K/uL Comprehensive Metabolic Panel Ordered On:15-Jun-2024 11:24 Gpshqo869jsmt/L(Normal) Range: 136mmol/L-142mmol/L Potassium4.0mmol/L(N ormal ) Range:3.5mmol/L-5.1mmol/L Ozsyibvi686yzli/L(Normal) Range: 98mmol/L-107mmol/L Carbon Ekyzyep22tjuj/L(Normal) Range:21mmol/L-32mmol/L Anion Als9tvkl/L(Normal) Range:5 mmol/L-14mmol/L Blood Urea Dzdtgcmu6wh/dL(Low) Range:7mg/dL-18mg/dL Creatinine0.70mg/dL( Ree l) Range:0.55mg/dL-1.02mg/dL Glom Filtration Rate CKD-EPI 2107mL/min Comments:EFFECTIVE JUN 2022, THE LABORATORY HAS CONVERTED TO [id number] CKD EPI CREATININE EQUATION FOR ADULTS THAT DOES NOTCONTAIN A RACE FACTOR TO CALCULATE AND REPORT THE eGFRRESULTS. BUN/Creatinine Ratio5.7 15-Jun-2024 11:31 Lnszzpc86bk/dL(Normal) Range:7 4mg/dL-106mg/dL Calcium9.7mg/dL(Normal) Range:8. 5mg/dL-10.1mg/dL Bilirubin Total0.6mg/dL(Normal) Range:0.2mg/dL-1mg/dL Aspartate Aminotrans AST/SGOT36[IU]/L(Normal) Range:15[IU]/L-37[IU]/L Alanine Aminotrans ALT/SGPT56[IU]/L(Normal) Range:14[IU]/L-59[IU]/L Total Protein8.3g/dL(High) Range:6.4g/dL-8.2g/dL Albumin4.4g/dL(Normal) Range:3.4 g/dL-5g/dL Globulin3.9g/dL Albumin/Globulin Ratio1.1 Alkaline Phosphatase Total89[IU]/L(Normal) Range:46[IU]/L-116[IU]/L Lipase Ordered On:15-Jun-2024 11:31 Wnmrdz35K/L(Normal) Range:16U/ L-77U/L Comments:REAGENT CHANGE: PLEASE NOTE NEW REFERENCE RANGE. Vital Signs 15-Jun-2024 20:43 O2 SAT98% Pulse64 Respiratory Rate18 BP Eixyhzfz780tv[Hg] BP Kcfkiryzp49ng[Hg] 15-Jun-2024 15:30 BP Afdlwiyn676gr[Hg] BP Ytcervozm05um[Hg] 15-Jun-2024 15:30 O2 SAT93% Pulse78 15-Jun-2024 15:21 BP Meukwima883vy[Hg] BP Wjluoxnnv34vt[Hg] 15-Jun-2024 15:21 O2 SAT97% Pulse78 15-Jun-2024 11:50 O2 SAT99% Pulse61 15-Jun-2024 11:43 O2 SAT98% Pulse75 15-Jun-2024 11:20 O2 SLD284% Pulse84 15-Jun-2024 11:17 BP Yyfisbjx576iq[Hg] BP Pgceqqfri44oy[Hg] 15-Jun-2024 11:17 O2 CNR136% Pulse68 15-Jun-2024 11:15 O2 AQE875% Pulse79 15-Jun-2024 10:14 O2 NEZ116% 15-Jun-2024 10:03 Pulse74 15-Jun-2024 10:03 BMI27.3kg/m2 Temp36.4c O2 QRG755% Pulse84 Respiratory Rate16 BP Pvcqdiwu081nh[Hg] BP Icufuimkq24us[Hg] Height5.2086251[ft_us] Lvpjlk638.399195yf 15-Jun-2024 10:00 BP Lvvdnbot080je[Hg] BP Wncufpjij43ca[Hg] 15-Jun-2024 10:00 O2 XKN963% Mpjhy002 Encounters Emergency Encounter Reason:CANT DIGEST FOOD Encounter Diagnosis:UNSPECIFIED LUMP IN UNSPECIFIED BREAST,GENERALIZED ENLARGED LYMPH NODES,DYSPHAGIA, UNSPECIFIED 15-Jun-2024 09:31Hv36-Uxf-4798 20:43 [place] Discharge Disposition:Discharged/transferred to another shortterm [facility] for inpatient care Patrick SEGOVIA15-Jun-2024 [place], [place] [address]Phone: ed PHYSICIAN RECORDPatient Name: SERGEY BRANDB: 1975 Age: 49 Sex: FAcct: [id number] MR#: [id number]: Author: Becca Nguyentient Status: [facility]: 06/15/24Report Date/Time: 06/15/24 1051 Report Status: SignedReport#: [id number] Illness- GeneralConfirmed Patient: Yes- Chief ComplaintChief Complaint: Other- Source of HistoryHx Obtained From: Patient- GeneralTime Seen by Provider: 06/15/24 10:00Past Medical History - Adult- Nursing NotesCalculated suicide risk level: No Risk- Nursing NotesStated Complaint: CANT DIGEST FOODAllergies/Adverse Reactions: AllergiesAllergy/AdvReac Type Severity Reaction Status Date / Timecephalexin [From Keflex] Allergy Unknown Verified 06/15/24 11:31ciprofloxacin Allergy Unknown Verified 06/15/24 11:31morphine Allergy Unknown Verified 06/15/24 11:31ondansetron Allergy Unknown Verified 06/15/24 11:31sulfamethoxazole Allergy Unknown Verified 06/15/24 11:31[From Bactrim]Patient Name: SERGEY BRAND Acct: [id number] Unit: [id number] Page 1trimethoprim [From Bactrim] Allergy Unknown Verified 06/15/24 11:31Physical Exam- Initial Vital SignsVital Signs - First Documented: Vital Signs - First DocumentedTemperature 97.6 F 06/15/24 10:03Temperature source Oral 06/15/24 10:03Pulse 84 06/15/24 10:03Respiratory rate 16 06/15/24 10:03Blood pressure 135/95 H 06/15/24 10:03Bedside pulse oximetry/SpO2 100 06/15/24 10:03Patient on Room air 06/15/24 10:03Weight 74.5 kg 06/15/24 10:03Weight source Stated/Reported 06/15/24 10:03Body surface area 1.87 06/15/24 10:03Body mass index 27.3 06/15/24 10:03Height 5 ft 5 in 06/15/24 10:03Height source Stated/Reported 06/15/24 10:03Interpretation Diagnostics- Lab Results InterpretationResult Diagrams: 06/15/24 10:57 06/15/24 10:57Re- Evaluation MDM- Free Text MDM NotesText/Dict MDM Notes:HPI:Patient Name: SERGEY BRAND JACOB Acct: [id number] Unit: [id number] Page 2[49-year-old female here for abdominal pain , difficulty swallowing. Patient reports that she hasbeen having a longstanding history of difficulty swallowing and recently had a barium swallow studydone at the end of last month. She apparently was told there were 3 separate areas where food wasnot passing properly and she would need a procedure to move some type of flap. Over the past 2weeks she has had approximately 12 lb weight loss with increase in worsening of her symptoms. Shereports she is having pain with swallowing and is only able to swallow liquids at this time. [place] with swallowing liquids she has a great deal of pain. She also reports that she has beenchoking on food and even choked on a banana today. In addition she reports she has been havingright lower quadrant abdominal pain for months but it has also worsened in the past few days. No asymptoms. No concerns for STDs.ROS[All other systems negative except what is mentioned in HPI]Past medical history:[Crohn'sPast surgical history:[Gastric bypass, appendectomyPast social/family history:[Former alcohol abuse, currently sober[All vital signs reviewed][Nursing notes reviewed and I agree] PHYSICAL EXAM:CONSTITUTIONAL: Well-developed, well-nourished, no acute distressHEENT: Normocephalic, atraumatic. PERRL. Mucous membranes moist. No drooling or difficulty handlingsecretionsNECK: Neck supple, no tracheal deviationHEART: Regular rhythm, no murmurs, gallops, or rubs appreciatedLUNGS: Clear bilaterally with normal effort and good air movement. No wheezes, rales, or rhonchiGI: Soft, diffuse tenderness, worse in RLQ, not rigid, not distended, no palpable masses.MSK: Moving all four extremities with full ROMINTEGUMENTARY: Warm, dry, well-perfused, no rashesNEURO: Alert, awake, and oriented to person, place, and time. Grossly nonfocal with intact strengthand sensation to bilateral upper and lower extremitiesPSYCH: normal mood and appropriate affect with good attention span and thought processMDM:49-year-old female here for abdominal pain , difficulty swallowing. Patient reports that she hasbeen having a longstanding history of difficulty swallowing and recently had a barium swallow studydone at the end of last month. She apparently was told there were 3 separate areas where food wasnot passing properly and she would need a procedure to move some type of flap. Over the past 2 weePatient Name: SERGEY BRAND Acct: [id number] Unit: [id number] Page 3ks she has had approximately 12 lb weight loss with increase in worsening of her symptoms. She reports she is having pain with swallowing and is only able to swallow liquids at this time. But even with swallowing liquids she has a great deal of pain. She also reports that she has been choking onfood and even choked on a banana today. In addition she reports she has been having right lower quadrant abdominal pain for months but it has also worsened in the past few days. No a symptoms. No concerns for STDs.CBC revealed a mild anemia with no leukocytosis.CMP was essentially normal other than BUN of for and protein of 8.3.UA was negative.CT chest/abd/pel1. No acute findings in the chest.2. No acute findings in the abdomen or pelvis.3.Nodular opacity along the inferior aspect of the right breast series 5 #187 measured approximately1.3 cm may represent fibroglandular tissue. Suggest correlation with nonemergent mammogram andultrasoundCT neckThere is no pharyngeal, laryngeal or soft tissue mass.Right level 4 lymph node, prominent in size in the sagittal plane although a small axial plane. Thislymph node is likely nonspecific although could be correlated clinicallyWe did discuss abnormal findings of her labs as well as her breast mass and lymph node in her neck.Due to her extensive pain with swallowing and having choked on foods we discussed transfer to [facility]. They were contact did in the did accept her for transfer to [facility]. Discussed with Dr Garrison.- ED CourseOrders-All:06/15/24 10:26Intravascular Access/Saline Lo STAT EDCT Abdomen And Pelvis w con [CT] StatCT Chest with Contrast [CT] StatCT Neck Soft Tissue [CT Neck with con] [CT] Stat06/15/24 10:27Prep - CT ABD PELVIS W/CONTRAS Once NurPrep - CT NECK W/CONTRAST Once NurWaive Creatinine for CT Order ONCECBC w Automated Differential StatComprehensive Metabolic Panel StatLipase StatUrinalysis Rfx to UCult StatKetorolac [Toradol] 15 mg IV X1ED STAdroperidol [droPERidol] 2.5 mg IV X1ED STA06/15/24 10:28Lactated Ringers 1,000 ml IV Wide Open mls/hrPatient Name: SERGEY BRAND JACOB Acct: [id number] Unit: [id number] Page 4Patient Discharge Departure- ConditionCondition: Stable- Discharge/Care PlanCounseled Regarding: Lab results, Imaging studies, Need for transferClinical Impression: Dysphagia, Breast mass, LymphadenopathyDischarge Plan- Discharge PlanReason For Visit: CANT DIGEST FOOD<Electronically signed by JODIE Nguyen> 06/15/24 1646I reviewed the PA/BUSINESS DIRECTOR's chart. I agree with the assessment and care plan, and confirm thediagnosis(es).<Electronically signed by Falguni Urbano MD> 06/28/24 1856Patient Name: SUNDAY SERGEYRUBÉN JAMES Acct: [id number] Unit: [id number] Page 5
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
--- NOTE | 2025-04-08 19:37 | ECG_ITS ---
APPROVED REPORT Exam: Resting ECG HR:89 bpm ECG Measurements Heart Rate 89 AXES WV 126 P 36 QRSd 78 QRS 43 QT 330 T 49 QTc 377 Conclusion SINUS RHYTHM WITH SINUS ARRHYTHMIA NORMAL ECG UNCONFIRMED REPORT Normal sinus rhythm with ventricular rate of [address] elevation or depression Electronically signed by : SANDI CANCINO, 04/08/2025 22:47:19
[2025-04-08 19:40] VITALS: BP 162/105; PULSE 112; RESP 18; TEMP 36.7; O2SAT 100; BMI 26.1
[2025-04-08 19:44] VITALS: PULSE 112
--- NOTE | 2025-04-08 19:49 | XR_ITS ---
PROCEDURE INFORMATION: Exam: XR Chest Exam date and time: 04/08/2025 8:54 PM Age: 49 years old Clinical indication: Shortness of breath; Additional info: SOA TECHNIQUE: Imaging protocol: Radiologic exam of the chest. Views: 1 view. COMPARISON: CT ABDOMEN PELVIS W CON 09/17/2024 7:50 PM FINDINGS: Lungs: Unremarkable. No consolidation. Pleural spaces: Unremarkable. No pleural effusion. No pneumothorax. Heart/Mediastinum: Unremarkable. No cardiomegaly. Bones/joints: Unremarkable. IMPRESSION: No acute findings.
--- NOTE | 2025-04-08 19:51 | [facility].EDCP ---
Discharge Plan Disposition Patient Disposition: Home, Self-Care Prescriptions Prescriptions: No Action quetiapine 25 mg tablet 25 mg PO HS Patient Comments: TAKE 1 TABLET BY MOUTH EVERY NIGHT cyanocobalamin (vitamin B-12) 1,000 mcg/mL solution 1,000 mcg IM MONTHLY Patient Comments: INJECT 1 ML IN THE MUSCLE EVERY 30 DAYS trazodone 150 mg tablet 150 mg PO HS Patient Comments: TAKE 1 TABLET BY MOUTH EVERY NIGHT buspirone 15 mg tablet 15 mg PO TIDP PRN (Reason: Anxiety) Patient Comments: TAKE 1 TABLET BY MOUTH THREE TIMES DAILY NEEDED FOR ANXIETY tizanidine 4 mg capsule 4 mg PO TIDP PRN (Reason: Muscle Spasm) Patient Comments: TAKE 1 CAPSULE BY MOUTH THREE TIMES DAILY NEEDED FOR MUSCLE SPASMS dicyclomine 20 mg tablet 20 mg PO TID baclofen 10 mg tablet 10 mg PO TID Patient Comments: TAKE 1 TABLET BY MOUTH THREE TIMES DAILY pantoprazole 40 mg tablet,delayed release (DR/EC) 40 mg PO BID Patient Comments: TAKE 1 TABLET BY MOUTH DAILY cefdinir 300 mg capsule 300 mg PO BID 9 Days Qty: 18 0RF oxycodone-acetaminophen 5-325 mg Tablet 1 tab PO Q6HP PRN (Reason: Moderate Pain (4-6)) 3 Days Qty: 12 0RF fluconazole 200 mg tablet 200 mg PO DAILY 3 Days Qty: 3 0RF Referrals Follow up/Referrals: Provider,Referral, MD [Referring, Medical] - See instructions Activity Restrictions/Add. Instructions Additional Instructions/Restrictions: I encourage you to follow-up with your primary care physician over the next few days. Your workup today revealed no emergent causes of your symptoms. If you develop any new or worsening symptoms, or if you become concerned for your health for any reason, return to the emergency department for evaluation. Clinical Impressions Clinical Impression: Chest pain, Anxiety, Palpitations, Nausea Print Language Print Language: Hungarian Discharge ED Provider: Gee Thapa <LASHONDA Mortensen - Last Filed: 04/08/25 21:45> General Chief Complaint: Chest Pain Stated Complaint: chest pain Time Seen by Provider: 04/08/25 19:39 Mode of Arrival: Ambulatory Source of Information: Patient Limitations: No Limitations Description of Symptoms (Recalled from ER Triage Doc. by RN): patient c/o chest pain, headache, and nausea. patient states her doctor and pharmacist told her that if she felt like this she should go to the ED because she could have something called serotonin syndrome. History of Present Illness HPI narrative: 49-year-old female presents the emergency department with multitude of symptomatology, patient states that some of her symptoms started around last night , she started experiencing some anxiety, difficulty sleeping for several days, palpitations, chest pain, sweating, and nausea, that is worsened throughout the day, patient states that she was told by her pharmacist and That if I ever experienced the symptoms I may have serotonin syndrome and to go to the hospital . Patient also complains of headache, lightheadedness, she denies any fever chills, admits to shortness of breath, denies any abdominal pain, denies urinary type symptomatology, denies any vaginal type symptomatology, denies any abdominal pain, denies any constipation or diarrhea, patient is a former smoker, occasional utilizes alcohol, denies any other illicit drug use, initial triage vitals notable for tachycardia otherwise unremarkable, otherwise medical history is consistent with GERD, JOSH/MDD, fibromyalgia, SLE, chronic pain syndrome, vitamin B12 deficiency, history of Lala-en-Y gastric bypass multiple years ago, patient is on gabapentin, Zoloft, Effexor, trazodone, and Lamictal for her mood stabilizers. Related Data Home Medications ?Medication ?Instructions ?Recorded ?Confirmed baclofen 10 mg tablet 10 mg PO TID 09/17/24 09/17/24 buspirone 15 mg tablet 15 mg PO TIDP PRN Anxiety 09/17/24 09/18/24 cyanocobalamin (vitamin B-12) 1,000 mcg IM MONTHLY 09/17/24 09/17/24 1,000 mcg/mL injection solution dicyclomine 20 mg tablet 20 mg PO TID 09/17/24 09/18/24 pantoprazole 40 mg tablet,delayed 40 mg PO BID 09/17/24 09/17/24 release quetiapine 25 mg tablet 25 mg PO HS 09/17/24 09/17/24 tizanidine 4 mg capsule 4 mg PO TIDP PRN Muscle Spasm 09/17/24 09/18/24 trazodone 150 mg tablet 150 mg PO HS 09/17/24 09/17/24 Previous Rx's ?Medication ?Instructions ?Recorded cefdinir 300 mg capsule 300 mg PO BID 9 days #18 caps 09/19/24 oxycodone-acetaminophen 5 mg-325 1 tab PO Q6HP PRN Moderate Pain 09/19/24 mg tablet (4-6) 3 days #12 tabs fluconazole 200 mg tablet 200 mg PO DAILY 3 days #3 tabs 09/22/24 Allergies Allergy/AdvReac Type Severity Reaction Status Date / Time aspirin Allergy Unknown Verified 07/24/24 13:29 allergy reaction cephalexin (From Keflex) Allergy Unknown Verified 07/24/24 13:29 allergy reaction ciprofloxacin (From Cipro) Allergy Unknown Verified 07/24/24 13:29 allergy reaction morphine Allergy Unknown Verified 07/24/24 13:29 allergy reaction NSAIDS (Non-Steroidal Allergy Unknown Verified 07/24/24 13:29 Anti-Inflamma allergy reaction ondansetron (From Zofran) Allergy Unknown Verified 07/24/24 13:29 allergy reaction Sulfa (Sulfonamide AdvReac Unknown Verified 07/24/24 13:29 Antibiotics) allergy reaction [facility] <LASHONDA Mortensen - Last Filed: 04/08/25 21:45> [facility] Disclaimer: The information contained in this section may have been updated after the patient was seen, as this information can be updated by other users. Surgical History (Updated 09/17/24 @ 21:46 by Jumana Dia RN) History of tonsillectomy History of appendectomy History of cholecystectomy History of Lala-en-Y gastric bypass Family History (Updated 09/17/24 @ 21:46 by Jumana Dia RN) Other Family history of cancer Family history of diabetes mellitus (DM) Family history of hypertension Social History (Updated 09/17/24 @ 21:46 by Jumana Dia RN) Smoking Status: Never smoker alcohol intake: never current occupational status: employed Travel in the last 8 weeks?: None Have you lived/traveled outside [place] in past 30 days?: No Contact w/someone who lives/traveled outside US past 30 days?: No Exposure to someone with infectious disease in past 14 days?: No Do you have a fever (greater than 100.4 F or 38 C)?: No Have you tested positive for COVID-19?: No Exposed to someone with COVID-19 in past 14 days?: No Do you have a sore throat?: No Do you have a cough?: No Do you have any weakness?: No Do you have any diarrhea?: No Are you experiencing any unusual bleeding?: No Do you have any muscle aches/pain?: No Do you have any abdominal pain?: No Are you experiencing loss of taste or smell?: No Other Medical History Have you received the Flu Vaccine for this season: No Have you received the Pneumonia Vaccine: No <LASHONDA Mortensen - Last Filed: 04/08/25 21:45> ROS Obtained: Yes All systems reviewed & no additional complaints except as documented Physical Exam <LASHONDA Mortensen - Last Filed: 04/08/25 21:45> General General appearance: alert, in no apparent distress and anxious Comment: Patient is moderately anxious appearing, with some flight of ideas Head Head exam: atraumatic and normocephalic Eye Eye exam: Present normal appearance, PERRL and EOMI Neck Neck exam: Present full ROM; Absent meningismus Chest Chest inspection: Present normal inspection Respiratory Respiratory exam: Absent respiratory distress, wheezes, stridor, accessory muscle use or prolonged expiratory phase Cardiovascular Cardiovascular exam: Present normal rhythm and other (Pulses equal and symmetric in bilateral upper and lower extremities) Abdominal Exam Abdominal exam: Absent distention Extremities Exam Extremities exam: Absent edema Neurological Exam Neurological exam: Present alert, oriented X3 and other (Alert oriented x 3, no altered mental status, no focal neurological deficit, no active tremors or clonus noted in the bilateral lower and upper extremities, negative Carlos sign bilaterally) Psychiatric Psychiatric exam: Present normal affect, anxious and other (Some flight of ideas, really anxious appearing) Skin Skin exam: Present warm and dry HEART Score <LASHONDA Mortensen - Last Filed: 04/08/25 21:45> HEART Score HEART Score assessment performed?: Yes HEART Score: 2 <Gee Thapa MD - Last Filed: 04/08/25 22:35> HEART Score HEART Score: 1 Procedures <Gee Thapa MD - Last Filed: 04/08/25 22:35> Limited Ultrasound Interpretation:: Limited cardiac ultrasound Indication: Shortness of breath, chest pain Identified cardiac views: -Cardiac parasternal long axis -Cardiac parasternal short axis -Cardiac apical four-chamber -Cardiac subxiphoid Findings: -Cardiac activity present -Wall motion grossly normal -Pericardial effusion absent -Right heart strain absent Impression: - From above Images were saved to permanent archive The study was technically adequate CPT: 86808 This study was performed by me, and I personally interpreted all images/videos. Based on my clinical judgement, these images were adequate/inadequate and did/did not necessitate further imaging. Critical Care <LASHONDA Mortensen - Last Filed: 04/08/25 21:45> Critical Care Time Critical Care Time: No Medical Decision Making <LASHONDA Mortensen - Last Filed: 04/08/25 21:45> Medical Records Medical records reviewed: Yes I reviewed the patient's medical records. Domo Inquiry Pt receiving controlled substance: Yes Domo was queried for this patient: No Reason not queried -: Emergent pt cond-no time Risks and benefits of using a controlled substance: were discussed with pt by me Vital Signs Vital Signs: 04/08/25 19:40 04/08/25 19:44 04/08/25 20:30 Temperature 98.1 F Temperature Source Oral Pulse Rate 112 H Pulse Rate [Left] 112 H Respiratory Rate 18 20 Blood Pressure 183/106 H Blood Pressure [Right Arm] 162/105 H Blood Pressure Mean Blood Pressure Mean [Right Arm] 124 Blood Pressure Source [Right Arm] Automatic Cuff Blood Pressure Position [Right Arm] Sitting 02 Sat by Pulse Oximetry 100 Oxygen Delivery Method Room Air 04/08/25 21:30 04/08/25 22:00 Temperature Temperature Source Pulse Rate 102 H 92 H Pulse Rate [Left] Respiratory Rate 17 17 Blood Pressure 169/85 H 153/88 H Blood Pressure [Right Arm] Blood Pressure Mean 114 119 Blood Pressure Mean [Right Arm] Blood Pressure Source [Right Arm] Blood Pressure Position [Right Arm] 02 Sat by Pulse Oximetry 99 97 Oxygen Delivery Method Lab Data Lab results reviewed: Yes I reviewed the patient's lab results. Labs: Lab Results 04/08/25 19:41: Plasma/Serum Alcohol < 10 04/08/25 19:46: WBC 6.6, RBC 3.71 L, Hgb 12.0 L, Hct 35.6 L, MCV 96.0, MCH 32.3 H, MCHC 33.7, RDW 12.9, Plt Count 193, MPV 9.6, Neut % (Auto) 69.0, Lymph % (Auto) 21.3, [place] % (Auto) 8.8, Eos % (Auto) 0.2, Baso % (Auto) 0.5, Neut # (Auto) 4.5, Lymph # (Auto) 1.4, [place] # (Auto) 0.6, Eos # (Auto) 0.0, Baso # (Auto) 0.0, PT 10.7, INR 0.96, D-Dimer 0.32, Sodium 131 L, Potassium 3.7, Chloride 95 L, Carbon Dioxide 26, Anion Gap 13.7, BUN 7, Creatinine 0.60, Estimated Creat Clear 130, Estimated GFR 107, Est GFR ( Amer) 130, Glucose 90, Calcium 8.8, Magnesium 1.6, Total Bilirubin 0.5, AST 55 H, ALT 72, Alkaline Phosphatase 91, Troponin I < 0.01, NT-Pro-B Natriuret Pep 2130 H, Total Protein 7.5 D, Albumin 4.4, Globulin 3.1, Albumin/Globulin Ratio 1.4, TSH 1.20, Thyroxine (T4) 7.8, Serum HCG, Qual Negative 04/08/25 21:43: Urine Color Yellow, Urine Appearance Clear, Urine pH 7.5, Ur Specific [place] 1.015, Urine Protein Negative, Urine Glucose (UA) Negative, Urine Ketones Negative, Urine Blood Negative, Urine Nitrate Negative, Urine Bilirubin Negative, Urine Urobilinogen 0.2, Ur Leukocyte Esterase Negative, Urine RBC Occasional, Urine WBC Occasional, Ur Squamous Epith Cells 5-10, Urine Mucus 1+ 04/08/25 21:44: Urine Opiates Screen Negative, Urine Methadone Screen Negative, Ur Barbituates Screen Negative, Ur Phencyclidine Scrn Negative, Ur Amphetamines Screen Negative, U Benzodiazepines Scrn Negative, Urine Cocaine Screen Negative, U Marijuana (THC) Screen Negative 04/08/25 19:46 04/08/25 19:46 Response Orders (Tests/Meds): ED MEDICATIONS Generic Name Dose Route Start Last Admin Trade Name Freq PRN Reason Stop Dose Admin Sodium Chloride 10 ml 04/08/25 19:53 Sodium Chloride 0.9% 10ml Vial IV 05/08/25 19:52 NEEDED PRN to Dilute Lorazepam inj Discontinued Medications Generic Name Dose Route Start Last Admin Trade Name Freq PRN Reason Stop Dose Admin Droperidol 0.625 mg 04/08/25 20:32 04/08/25 20:53 Droperidol 5mg/2ml Vial IV 04/08/25 20:33 0.625 mg ONCE ONE Administration Sodium Chloride 1,000 mls @ 999 mls/hr 04/08/25 19:57 04/08/25 20:07 Sod Chlor 0.9% 1000ml Bag IV 04/08/25 20:57 999 mls/hr .Q1H1M ONE Administration Lorazepam 2 mg 04/08/25 19:53 04/08/25 20:07 Lorazepam 2mg/Ml Vial IV 04/08/25 19:54 2 mg ONCE ONE Administration ORDERS Category Date Time Status POCUS Point of Care (ER Only) Stat Exams 04/08/25 21:09 Completed XR chest portable Stat Exams 04/08/25 19:49 Completed Complete Blood Count Auto Diff Stat Lab 04/08/25 19:46 Completed Comprehensive Metabolic Panel Stat Lab 04/08/25 19:46 Completed D-Dimer Stat Lab 04/08/25 19:46 Completed Ethyl Alcohol Stat Lab 04/08/25 19:41 Completed HCG Qualitative, Serum Stat Lab 04/08/25 19:46 Completed Magnesium Stat Lab 04/08/25 19:46 Completed NT Pro Brain Natriuretic Pep. Stat Lab 04/08/25 19:46 Completed PT INR [Prothrombin Time INR] Stat Lab 04/08/25 19:46 Completed T4 (Thyroxine) Stat Lab 04/08/25 19:46 Completed TSH [Thyroid Stimulating Hormone] Stat Lab 04/08/25 19:46 Completed Troponin I Q3H Lab 04/08/25 23:00 Ordered Troponin I Q3H Lab 04/09/25 02:00 Ordered Troponin I Stat Lab 04/08/25 19:46 Completed UDS [Drug Screen,Urine] Stat Lab 04/08/25 21:44 Completed Urinalysis and Microscopic Stat Lab 04/08/25 21:43 Completed MDM Narrative Medical Decision Narrative: 49-year-old female presents emergency department with multitude of symptomatology, see HPI for detail past medical history, differential diagnosis include but not limited to electrolyte disturbance, panic attack, anxiety reaction, toxic ingestion, occasion side effect, ACS, PE, among others. Will obtain basic laboratory studies, D-dimer, magnesium level, proBNP, coags, TSH with reflex T4, troponin, UDS, UA, urine hCG, CXR, EKG, will give 2 mg IV Ativan, for agitation/anxiety, will give 1 L IV NS. CBC unremarkable CMP is notable for mild hyponatremia 131, AST minimally elevated at 55 D-dimer is 0.32, thus negative for VTE/PE Coags within normal limit proBNP is mildly elevated at 2130. Initial troponin is normal at less than 0.01. T4 within normal limits Patient still complaining of headache nausea and is quite anxious, after 2 mg IV Ativan, will give 0.625 IV droperidol for he headache, nausea and anxiety symptomatology. Less likely to be a serotonergic syndrome as patient is only currently on SSRI and SNRI, as well as trazodone, she is been taking his medication for quite some time, patient has no hyperthermia, no clonus, no tremors, TSH within normal limits hCG qualitative negative. I had a long discussion with the patient and family at the bedside, patient is still quite anxious, and has a multitude of symptomatology, she states that she has had previous [id number] dilation/strictures, could have caused chest pain in the past, she follows with GI for this, also is discussing some symptomatology in her vaginal region, for which she is seeing [facility] for she describes it as a knot , she is seen [facility] for this, found to be benign and no other further workup was done. Patient also tells me that she just got out of alcohol rehab , and November , she denies any alcohol use today or currently, states she has been clean and sober since alcohol rehab discharge. Ethyl alcohol levels less than 10. Will obtain POCUS bedside ultrasound for elevated proBNP. I reviewed the patient's chest x-ray along the corresponding radiologic report, no acute findings. I discussed this patient case with attending physician Dr. Thapa at shift change, he will be assuming admitted the patient's care/workup, urinalysis/UDS and clinical reexamination. <Gee Thapa MD - Last Filed: 04/08/25 22:35> Vital Signs Vital Signs: 04/08/25 19:40 04/08/25 19:44 04/08/25 20:30 Temperature 98.1 F Temperature Source Oral Pulse Rate 112 H Pulse Rate [Left] 112 H Respiratory Rate 18 20 Blood Pressure 183/106 H Blood Pressure [Right Arm] 162/105 H Blood Pressure Mean Blood Pressure Mean [Right Arm] 124 Blood Pressure Source [Right Arm] Automatic Cuff Blood Pressure Position [Right Arm] Sitting 02 Sat by Pulse Oximetry 100 Oxygen Delivery Method Room Air 04/08/25 21:30 04/08/25 22:00 Temperature Temperature Source Pulse Rate 102 H 92 H Pulse Rate [Left] Respiratory Rate 17 17 Blood Pressure 169/85 H 153/88 H Blood Pressure [Right Arm] Blood Pressure Mean 114 119 Blood Pressure Mean [Right Arm] Blood Pressure Source [Right Arm] Blood Pressure Position [Right Arm] 02 Sat by Pulse Oximetry 99 97 Oxygen Delivery Method Lab Data Labs: Lab Results 04/08/25 19:41: Plasma/Serum Alcohol < 10 04/08/25 19:46: WBC 6.6, RBC 3.71 L, Hgb 12.0 L, Hct 35.6 L, MCV 96.0, MCH 32.3 H, MCHC 33.7, RDW 12.9, Plt Count 193, MPV 9.6, Neut % (Auto) 69.0, Lymph % (Auto) 21.3, [place] % (Auto) 8.8, Eos % (Auto) 0.2, Baso % (Auto) 0.5, Neut # (Auto) 4.5, Lymph # (Auto) 1.4, [place] # (Auto) 0.6, Eos # (Auto) 0.0, Baso # (Auto) 0.0, PT 10.7, INR 0.96, D-Dimer 0.32, Sodium 131 L, Potassium 3.7, Chloride 95 L, Carbon Dioxide 26, Anion Gap 13.7, BUN 7, Creatinine 0.60, Estimated Creat Clear 130, Estimated GFR 107, Est GFR ( Amer) 130, Glucose 90, Calcium 8.8, Magnesium 1.6, Total Bilirubin 0.5, AST 55 H, ALT 72, Alkaline Phosphatase 91, Troponin I < 0.01, NT-Pro-B Natriuret Pep 2130 H, Total Protein 7.5 D, Albumin 4.4, Globulin 3.1, Albumin/Globulin Ratio 1.4, TSH 1.20, Thyroxine (T4) 7.8, Serum HCG, Qual Negative 04/08/25 21:43: Urine Color Yellow, Urine Appearance Clear, Urine pH 7.5, Ur Specific [place] 1.015, Urine Protein Negative, Urine Glucose (UA) Negative, Urine Ketones Negative, Urine Blood Negative, Urine Nitrate Negative, Urine Bilirubin Negative, Urine Urobilinogen 0.2, Ur Leukocyte Esterase Negative, Urine RBC Occasional, Urine WBC Occasional, Ur Squamous Epith Cells 5-10, Urine Mucus 1+ 04/08/25 21:44: Urine Opiates Screen Negative, Urine Methadone Screen Negative, Ur Barbituates Screen Negative, Ur Phencyclidine Scrn Negative, Ur Amphetamines Screen Negative, U Benzodiazepines Scrn Negative, Urine Cocaine Screen Negative, U Marijuana (THC) Screen Negative Response Orders (Tests/Meds): ED MEDICATIONS Generic Name Dose Route Start Last Admin Trade Name Freq PRN Reason Stop Dose Admin Sodium Chloride 10 ml 04/08/25 19:53 Sodium Chloride 0.9% 10ml Vial IV 05/08/25 19:52 NEEDED PRN to Dilute Lorazepam inj Discontinued Medications Generic Name Dose Route Start Last Admin Trade Name Freq PRN Reason Stop Dose Admin Droperidol 0.625 mg 04/08/25 20:32 04/08/25 20:53 Droperidol 5mg/2ml Vial IV 04/08/25 20:33 0.625 mg ONCE ONE Administration Sodium Chloride 1,000 mls @ 999 mls/hr 04/08/25 19:57 04/08/25 20:07 Sod Chlor 0.9% 1000ml Bag IV 04/08/25 20:57 999 mls/hr .Q1H1M ONE Administration Lorazepam 2 mg 04/08/25 19:53 04/08/25 20:07 Lorazepam 2mg/Ml Vial IV 04/08/25 19:54 2 mg ONCE ONE Administration ORDERS Category Date Time Status POCUS Point of Care (ER Only) Stat Exams 04/08/25 21:09 Completed XR chest portable Stat Exams 04/08/25 19:49 Completed Complete Blood Count Auto Diff Stat Lab 04/08/25 19:46 Completed Comprehensive Metabolic Panel Stat Lab 04/08/25 19:46 Completed D-Dimer Stat Lab 04/08/25 19:46 Completed Ethyl Alcohol Stat Lab 04/08/25 19:41 Completed HCG Qualitative, Serum Stat Lab 04/08/25 19:46 Completed Magnesium Stat Lab 04/08/25 19:46 Completed NT Pro Brain Natriuretic Pep. Stat Lab 04/08/25 19:46 Completed PT INR [Prothrombin Time INR] Stat Lab 04/08/25 19:46 Completed T4 (Thyroxine) Stat Lab 04/08/25 19:46 Completed TSH [Thyroid Stimulating Hormone] Stat Lab 04/08/25 19:46 Completed Troponin I Q3H Lab 04/08/25 23:00 Ordered Troponin I Q3H Lab 04/09/25 02:00 Ordered Troponin I Stat Lab 04/08/25 19:46 Completed UDS [Drug Screen,Urine] Stat Lab 04/08/25 21:44 Completed Urinalysis and Microscopic Stat Lab 04/08/25 21:43 Completed MDM Narrative Medical Decision Narrative: 49-year-old female presents emergency department with multitude of symptomatology, see HPI for detail past medical history, differential diagnosis include but not limited to electrolyte disturbance, panic attack, anxiety reaction, toxic ingestion, occasion side effect, ACS, PE, among others. Will obtain basic laboratory studies, D-dimer, magnesium level, proBNP, coags, TSH with reflex T4, troponin, UDS, UA, urine hCG, CXR, EKG, will give 2 mg IV Ativan, for agitation/anxiety, will give 1 L IV NS. CBC unremarkable CMP is notable for mild hyponatremia 131, AST minimally elevated at 55 D-dimer is 0.32, thus negative for VTE/PE Coags within normal limit proBNP is mildly elevated at 2130. Initial troponin is normal at less than 0.01. T4 within normal limits Patient still complaining of headache nausea and is quite anxious, after 2 mg IV Ativan, will give 0.625 IV droperidol for he headache, nausea and anxiety symptomatology. Less likely to be a serotonergic syndrome as patient is only currently on SSRI and SNRI, as well as trazodone, she is been taking his medication for quite some time, patient has no hyperthermia, no clonus, no tremors, TSH within normal limits hCG qualitative negative. I had a long discussion with the patient and family at the bedside, patient is still quite anxious, and has a multitude of symptomatology, she states that she has had previous [id number] dilation/strictures, could have caused chest pain in the past, she follows with GI for this, also is discussing some symptomatology in her vaginal region, for which she is seeing [facility] for she describes it as a knot , she is seen [facility] for this, found to be benign and no other further workup was done. Patient also tells me that she just got out of alcohol rehab , and November , she denies any alcohol use today or currently, states she has been clean and sober since alcohol rehab discharge. Ethyl alcohol levels less than 10. Will obtain POCUS bedside ultrasound for elevated proBNP. I reviewed the patient's chest x-ray along the corresponding radiologic report, no acute findings. I discussed this patient case with attending physician Dr. Thapa at shift change, he will be assuming admitted the patient's care/workup, urinalysis/UDS and clinical reexamination. Gee Thapa MD I was consulted by the ORIN, and we discussed the complexity of the problems being addressed. I approve the treatment and management plan for this patient's care in the emergency department, thus performing a substantive portion of the medical decision making. Urinalysis unremarkable without evidence of urinary tract infection. UDS negative On reassessment, patient remained in stable condition. Patient does not have clonus on exam and there is low concern for serotonin syndrome. Patient's BNP is mildly elevated today at over 2000, however no evidence of cardiac dysfunction on [id number] cardiac ultrasound. See procedure note for details. Given there is no acute findings on her workup today, it is felt that she is appropriate for discharge at this time with plan to follow-up with her primary care physician. Heart rate at this time is 88 bpm, blood pressure 153/88. Maintaining appropriate oxygen saturations on room air. Return precautions were given. All questions were answered. She demonstrated understanding and was agreement this plan. She was then discharged from the emergency department in stable condition.
--- OUTSIDE RECORDS SUMMARY | 2025-04-08 19:55 | XMS_ITS | Clinical Summary ---
Author Organization [facility] Address [address] [place] [address] Care Team Providers Care Economic Development Specialist Name Role Phone Keisha Victoria MD Primary Care Provider [phone] RaphaelCarmen coats AUTOMATIC SPINNING LATHE OPERATOR Unavailable [phone] Allergies Active Allergy Reactions Criticality Noted Date Comments Sulfamethoxazole-Trimet hoprim Hives Medium 06/15/2024 Ciprofloxacin Hives Medium 06/15/2024 Fish Allergy Anaphylaxis High 06/18/2024 Cephalexin Hives Medium 06/15/2024 Morphine Hives Medium 06/15/2024 Nsaids Other - please document in the comment field Low 06/15/2024 Concerned about GI bleed Other Diarrhea Low 06/18/2024 Pt reported milk/milk products cause GI upset. Pt can still have milk as an ingredient in foods items like baked goods. Rice Anaphylaxis High 06/18/2024 Sulfa Drugs Hives Medium 06/15/2024 Ondansetron Hives Medium 06/15/2024 Medications * This document contains information received from the source organization and may not represent a complete record from that organization. baclofen (Lioresal) 10 MG tablet Take 1 tablet (10 mg) by mouth 3 (three) times a day. 4 Active Vitamin D3 1.25 MG (54428 UT) capsule Take 1 capsule (50,000 Units) by mouth 1 (one) time per week. 4 Active cyanocobalamin (Vitamin B-12) 1000 MCG/ML injection Inject 1 mL (1,000 mcg) under the skin every 30 (thirty) days. 4 Active dicyclomine (Bentyl) 20 MG tablet Take 1 tablet (20 mg) by mouth 4 (four) times a day if needed. 4 Active QUEtiapine (SEROquel) 25 MG tablet Take 1 tablet (25 mg) by mouth every night. 4 Active RABEprazole (Aciphex) 20 MG EC tablet Take 1 tablet (20 mg) by mouth 1 (one) time each day. 4 Active SUMAtriptan (Imitrex) 100 MG tablet Take 1 tablet (100 mg) by mouth 1 (one) time if needed. 4 Active tamsulosin (Flomax) 0.4 MG 24 hr capsule Take 1 capsule (0.4 mg) by mouth every night. 4 Active traZODone (Desyrel) 100 MG tablet Take 1 tablet (100 mg) by mouth every night. 4 Active naltrexone (Vivitrol) 380 MG reconstituted suspension injection Inject 4.2 mL (380 mg) into the muscle every 28 (twenty-eight) days. Active thiamine (Vitamin B-1) 100 MG tablet Take 1 tablet (100 mg) by mouth 1 (one) time each day. Active naloxone (Narcan) 4 mg/0.1 mL nasal spray 1. Give 1 spray in nostril for no/slow breathing or cannot wake after opioid use 2. Call 911 3. Repeat in other nostril if symptoms continue Call 911. Give 4 mg (1 spray) into one nostril. Repeat every 2-3 minutes as needed, alternating nostrils, until medical assistance arrives. 1 each 4 025 Active Active Problems Problem Noted Date Diagnosed Date Gastroesophageal reflux disease without esophagi tis 06/15/2024 Hiatal hernia 06/15/2024 H/O gastric bypass 06/15/2024 Fibromyalgia 06/15/2024 Resolved Problems Problem Noted Date Diagnosed Date Resolved Date Severe protein-calorie malnutrition 06/18/2024 06/25/2024 Dysphagia 06/15/2024 06/25/2024 Family History Medical History Relation Name Comments Diabetes Maternal Grandmother Diabetes Mother Hyperlipidemia Mother Hypertension Mother Atrial fibrillation Other 1 Diabetes Other 2 Hyperlipidemia Other 3 Hypertension Other 4 Relation Name Status Comments Maternal Grandmother Mother Other 1 Other 2 Other 3 Other 4 Social History Tobacco Use Types Packs/Day Years Used Date Smoking Tobacco: Never Smokeless Tobacco: Never Tobacco Cessation:Counseling Given: Not Answered Alcohol Use Standard Drinks/Week Comments Not Currently 0 (1 standard drink = 0.6 oz pure alcohol) Alcoholic Drinks/day: No history of alcohol use Humiliation, Afraid, Rape, and Kick questionnair e Answer Date Recorded Within the last year, have y ou been afraid of your partner or ex-partner? No 06/17/2024 Within the last year, have y ou been humiliated or emotionally abused in other ways by your partner or ex-partner? No Within the last year, have y ou been kicked, hit, slapped, or otherwise physically hurt by your partner or ex-partner? No 06/17/2024 Within the last year, have y ou been raped or forced to have any kind of sexual activity by your partner or ex-partner? No 06/17/2024 Hunger Vital Sign Answer Date Recorded Within the past 12 months, y ou worried that your food would run out before you got the money to buy more. Never true 06/17/20 24 Within the past 12 months, t he food you bought just didn't last and you didn't have money to get more. Never true 06/17/2024 PRAPARE - Transportation Answer Date Re corded In the past 12 months, has l ack of transportation kept you from medical appointments or from getting medications? No 06/01 In the past 12 months, has l ack of transportation kept you from meetings, work, or from getting things needed for daily living? No 06/17/2024 Housing Stability Vital Sign Answer Tavares e Recorded In the last 12 months, was t here a time when you were not able to pay the mortgage or rent on time? No 06/17/2024 Number of Places Lived in the Last Year Not on f ile 06/17/2024 In the last 12 months, was t here a time when you did not have a steady place to sleep or slept in a skilled nursing (including now)? No 06/17/2024 Utilities Answer Date Recorded In the past 12 months has th e electric, gas, oil, or water [employer] threatened to shut off services in your home? No 06/17/2024 Comments Unknown Sex and Gender Information Value Date Recorded Sex Assigned at Not on file Legal Sex Female 6:33 PM EDT Gender Identity Not on file Sexual Orientation Not on file Last Filed Vital Signs Vital Sign Reading Time Taken Comments Blood Pressure 100/65 06/25/2024 6:23 AM EDT Pulse 72 06/25/2024 6:23 AM EDT Temperature 36.8 C (98.3 F) 06/25/2024 6:23 AM EDT Respiratory Rate 16 06/24/2024 10:0 0 PM EDT Oxygen Saturation 97% 06/25/2024 6:23 AM EDT Inhaled Oxygen Concentration - - Weight 73.8 kg (162 lb 11.2 oz) 024 10:00 AM EDT Height 165.1 cm (5' 5 ) 06/20/2024 10:0 0 AM EDT Body Mass Index 27.07 06/20/2024 10:00 AM EDT Plan of Treatment Health Maintenance Due Date Last Done Comments [facility]-Depression Screening 1977 [facility]-/Child/Adol SDOH Screenings 1977 [facility]-DTaP,Tdap,and Td Vaccines (1 - Tdap) 1996 [facility]-Hepatitis B Vaccines (1 of 3 - 19+ 3-dose series) 1996 [facility]-Pap Smear 1998 [facility]-Cervical Cancer Screening 2007 [facility]-HPV/Cotest 2007 CT Colonography 2022 Colonoscopy 2022 FIT-DNA 2022 FIT 2022 FOBT 2022 Sigmoidoscopy 2022 [facility]-Colorectal Cancer Screening 2022 [id number] Vaccine ( season) 2024 07/07/2022, 05/28/2021, 01/25/2021, Additional history exists [facility]- SDOH Screenings 12/15/2024 [facility]-Adult SDOH Screenings 12/15/2024 06/17/2024 [facility]-Influenza Vaccine (#1) 06/01/202511/07, 07/07/2022, 07/02/2021, Additional history exists [facility]-Zoster Vaccines (1 of 2) 2027 [facility]-Hepatitis A Vaccines Aged Out 04/01/2019, 08/01 No longer eligible based on patient's age to complete this topic [facility]-HIV Screening Completed 06/15/2024 [facility]-Hepatitis C Screening Completed 06/15/2024, [facility]-Obesity Intervention Completed 06/15/2024 HPV Vaccines Aged Out No longer eligi ble based on patient's age to complete this topic [facility]-HIB Vaccines Aged Out No longer e ligible based on patient's age to complete this topic [facility]-IPV Vaccines Aged Out No longer e ligible based on patient's age to complete this topic [facility]-Pneumococcal Vaccine: Pediatrics (0 to 5 Years) and At-Risk Patients (6 to 49 Years) Aged Out No longer eligible based on patient's age to complete this topic [facility]-Rotavirus Vaccines Aged Out No lo nger eligible based on patient's age to complete this topic Procedures Procedure Name Priority Date/Time Associated Diagnosis Comments HEPATITIS C ANTIBODY - ED W/REFLEX TO HCV QUANT PCR STAT 06/15/2024 10:09 PM EDT ED HIV 1/2 ANTIBODY/ANTIGEN SCREEN WITH REFLEX TO HIV I/II DIFFERENTIATION STAT 06/15/2024 10:09 PM EDT from Last 3 Months or Most Recently Relevant to Health Maintenance Results * ED HIV 1/2 Antibody/Antigen Screen w/Reflex to HIV 1/2 Differentiation (06/15/2024 10:09 PM EDT) HIV 1 & 2 Antibody/Antigen Screen Non Reactive Non Reactive 06/15/2024 10:46 PM EDT [facility] Comment:Screening for HIV 1 & 2 antibodies, and P24 antigen is NONREACTIVE. No confirmatory testing is required. Blood Venous blood specimen / Unknown Venipuncture / Unknown 06/15/2024 10:09 PM EDT 06/15/2024 10:12 PM EDT [facility] BLOOD ORDERABLES Laurie l Result [facility] [address] [place] [address] * Hepatitis C Antibody - ED (06/15/2024 10:09 PM EDT) Hepatitis C Antibody Negative Negative 06/15/2024 10:42 PM EDT [facility]ALTH[facility] Blood Venous blood specimen / Unknown Venipuncture / Unknown 06/15/2024 10:09 PM EDT 06/15/2024 10:12 PM EDT [facility] BLOOD ORDERABLES [facility] [address] [place] [address] from Last 3 Months or Most Recently Relevant to Health Maintenance Insurance Advance Directives * Full Code (Latest Code Status on File) Date Activated Date Inactivated Comments 06/15/2024 10:46 PM 06/25/2024 11:47 AM Question Answer Comments Patient has decision-making capacity? Yes Care Teams Economic Development Specialist Relationship Specialty Start Date End Date Julien, Keisha D, MD PCP - General 06/15/24 Carmen Lim APRN [address] [place] [address] 06/15/24
[2025-04-08 19:56] LABS: Hematocrit 35.6 % (37.0-47.0); Hemoglobin 12.0 g/dL (12.2-16.2); Immature Granulocytes % 0.2 %; Mean Corpuscular HGB Conc 33.7 g/dL (31.8-35.4); Mean Corpuscular Hemoglobin 32.3 pg (27.0-31.2); Mean Corpuscular Volume 96.0 fl (81-99); Nucleated Red Blood Cells % 0 %; Platelet Count 193 K/mm3 (142-424); Red Blood Count 3.71 M/mm3 (4.20-5.40); Red Cell Distribution Width-SD 45.7 fL; White Blood Count 6.6 K/mm3 (4.8-10.8)
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
[2025-04-08 20:00] LABS: Chloride 95 mmol/L (98-107)
[2025-04-08 20:01] LABS: Albumin Level 4.4 g/dl (3.5-5.0); Potassium 3.7 mmoL/L (3.5-5.1); Sodium 131 mmol/L (136-145)
[2025-04-08 20:03] LABS: Anion Gap 13.7 mEq/L (5-15); Blood Urea Nitrogen 7 mg/dl (7-17); Carbon Dioxide 26 mmol/L (22.0-30.0); Creatinine Clearance Estimated 130 mL/min (50-200); Creatinine,Serum 0.60 mg/dl (0.52-1.04); Estimated Glomerular Filt Rate 107 ml/min (>60); GFR (African American) 130 ML/MIN (>60)
[2025-04-08 20:04] LABS: Alanine Aminotransferase 72 U/L (12-78); Albumin/Globulin Ratio 1.4 (1.1-1.8); Alkaline Phosphatase 91 U/L (38-126); Aspartate Amino Transferase 55 U/L (14-36); Bilirubin,Total 0.5 mg/dl (0.2-1.3); Calcium 8.8 mg/dl (8.4-10.2); Globulin 3.1 g/dL (1.3-3.2); Glucose 90 mg/dl (74-100); INR 0.96 (0.9-1.1); Magnesium 1.6 mg/dl (1.6-2.3); Prothrombin Time 10.7 seconds (10.1-12.5); Total Protein,Serum 7.5 g/dl (6.3-8.2)
[2025-04-08] MEDS: LORazepam 2MG/ML VIAL 2 MG IV (20:07)
[2025-04-08] MEDS: 0.9 % SODIUM CHLORIDE 1000ML 1,000 ML 999 ML IV (20:07)
[2025-04-08 20:11] LABS: D-Dimer 0.32 ug/mL (0.0-0.5)
[2025-04-08 20:14] LABS: NT Pro Brain Natriuretic Pep. 2130 pg/mL (0-125)
[2025-04-08 20:19] LABS: Troponin I < 0.01 ng/ml (0.00-0.034)
[2025-04-08 20:21] LABS: T4 (Thyroxine) 7.8 ug/dl (5.53-11.0)
[2025-04-08 20:30] VITALS: BP 183/106; RESP 20
[2025-04-08 20:35] LABS: Thyroid Stimulating Hormone 1.20 uIU/mL (0.465-4.68)
[2025-04-08 20:38] LABS: HCG Qualitative, Serum Negative (Negative)
[2025-04-08] MEDS: droPERidol 5MG/2ML VIAL 0.625 MG IV (20:53)
[2025-04-08 21:30] VITALS: BP 169/85; PULSE 102; RESP 17; O2SAT 99
--- NOTE | 2025-04-08 21:52 | ECG_ITS ---
APPROVED REPORT Exam: Resting ECG HR:104 bpm ECG Measurements Heart Rate 104 AXES NM 141 P 49 QRSd 85 QRS 30 QT 343 T 34 QTc 403 Conclusion SINUS TACHYCARDIA ABNORMAL RHYTHM ECG UNCONFIRMED REPORT Sinus tachycardia. No ST elevation or depression. Electronically signed by : SANDI CANCINO, 04/08/2025 22:45:37
[2025-04-08 22:00] VITALS: BP 153/88; PULSE 92; RESP 17; O2SAT 97
[2025-04-08 22:00] LABS: Microscopic, Urine URINE MICROSCOPIC (MICROSCOPIC)
[2025-04-08 22:01] LABS: Bilirubin,Urine Negative (Negative); Color,Urine YELLOW (Yellow); Glucose,Urine (UA) Negative (Negative); Ketones,Urine Negative (Negative); Leukocyte Esterase,Urine Negative (Negative); PH,Urine 7.5 (5.0-8.5); Protein,Urine Negative (Negative); Specific Gravity, Urine 1.015 (1.005-1.030); Urobilinogen,Urine 0.2 EU/dl (0.2)
[2025-04-08 22:17] LABS: RBC,Urine Occasional #/hpf (0-3); WBC,Urine Occasional #/hpf (0-3)
[2025-04-08 22:18] LABS: Mucus,Urine 1+ /lpf
[2025-04-08 22:18] LABS: Amphetamine/Metha Screen,Urine Negative ng/ml (<1000); Barbiturates Screen,Urine Negative ng/ml (<200)
[2025-04-08 22:19] LABS: Benzodiazepines Screen,Urine Negative ng/ml (<200)
[2025-04-08 22:21] LABS: Methadone Screen,Urine Negative ng/ml (<300); Opiate Screen,Urine Negative ng/ml (<300)
[2025-04-08 22:22] LABS: Phencyclidine Screen,Urine Negative ng/ml (<25)
[2025-04-08 22:44] VITALS: BP 176/98; PULSE 92; RESP 18; TEMP 36.6; O2SAT 100
== END 2025-04-08 22:45 | disposition home or self-care (01) ==
PROVIDERS: Physician Assistant; Emergency Provider Student in an Organized Health Care Education/Training Program; PCP Family Medicine
DX: R07.9 Chest pain, unspecified (principal); R00.2 Palpitations; F41.9 Anxiety disorder, unspecified; R11.0 Nausea; E87.1 Hypo-osmolality and hyponatremia
CPT/HCPCS: 71045; 80053; 80307; 80320; 81001; 83735; 83880; 84436; 84443; 84484; 84703; 85025; 85378; 85610; 93005; 96361; 96374; 96375; 99285; J1790; J2060; J7030